=== PATIENT | female | born 1990 | race Caucasian/White ===

== ENCOUNTER 2024-12-02 13:09 | Emergency (ER) | payer OTHER, SELFPAY ==
[2024-12-02 13:10] VITALS: BMI 28.0
[2024-12-02 13:19] VITALS: BP 116/78; PULSE 90; RESP 20; TEMP 36.4; O2SAT 99
--- NOTE | 2024-12-02 13:24 | XR_ITS ---
Examination: Complete OB ultrasound, less than 14 weeks, transabdominal Date and time of exam: December 02, 2024 1416 hours INDICATIONS: Pelvic cramping beginning one week ago with vaginal bleeding beginning one day ago Technique: Obstetrical ultrasound images less than 14 weeks performed via transabdominal imaging Findings: A normal shaped single intrauterine gestation is present in the uterus. Uterus 11.5 x 7.9 x 7.9 cm pole 0.9 cm corresponds to 7 week 0 day gestational age Cardiac motion 166 BPM Ultrasonographic survey of visible and placental structures unremarkable. Amniotic fluid volume appears appropriate for this estimated gestational age. Right ovary 15.3 x 4.3 x 15.2 cm arterial flow, right adnexal mass 14.2 x 10.9 x 13.7 cm Left ovary 6.9 x 5.2 x 6.8 cm arterial flow 4.2 x 4.5 cm cyst IMPRESSION: Viable intrauterine gestation 7 weeks 0 days Recommend MRI pelvis without contrast follow-up at 20 weeks date to assess the right adnexal solid tumor mass.
--- NOTE | 2024-12-02 13:24 | EDNOTE_ITS ---
<Statement entered by Sarah Soto MD - 12/02/24 17:41> As co-signing physician, I was present and available for consult prn. I concur with the plan and care as documented by the midlevel provider. ED OB Contraction Preg RMI/HPI General Chief complaint: Abdominal Pain Stated complaint: + PREG, CRAMPING, FEVER AND VOMITING Time Seen by Provider: 12/02/24 13:19 Arrival date/time: 12/02/24 13:09 RME / HPI RME / HPI Narrative: 34-year-old female patient with no significant medical history, came in for evaluation regarding vaginal spotting. Patient tested positive for few days ago, and last night was noted to have vaginal spotting with pelvic discomfort. She been having vomiting also. Denies any abdominal pain. Denies any fever denies any dysuria denies any other complaints. Obese seen any MAC DEVELOPER for checkup.. Patient is 1 para 0. Related Data Previous Rx's ?Medication ?Instructions ?Recorded cyclobenzaprine 5 mg tablet 5 mg PO TID PRN muscle spa sm #14 09/27/20 tabs naproxen 500 mg tablet 500 mg PO BID PRN pain #30 t abs 09/27/20 ondansetron 4 mg disintegrating 4 mg PO Q8H PRN nausea and 09/29/20 tablet vomiting #14 tabs ondansetron 8 mg disintegrating 8 mg PO Q8H PRN nausea and 02/01/22 tablet vomiting #30 tabs hydrocodone 5 mg-acetaminophen 325 1 tab PO Q8H PRN pa in #7 tabs 05/07/24 mg tablet ibuprofen 800 mg tablet (IBU) 800 mg PO Q8H #20 tabs 0 05/07/24 Allergies Allergy/AdvReac Type Severity Reaction Status Date / Time No Known Allergies Allergy Verified 12/02/24 13:11 Review of Systems Review of Systems Narrative Review of Systems: Review of system reviewed and within normal limits except mentioned in HPI ED Exam Narrative Physical exam: VITAL SIGNS: Reviewed. GENERAL APPEARANCE: Alert and interactive, follows commands, no acute distress, HEAD AND FACE: Non-traumatic. ENT: PERRL, pink conjunctivitis, eyelid no trauma, Mucous membrane moist. NECK: Supple, nontender, no nuchal rigidity. CHEST: No tenderness, no crepitus, no paradoxical movement, no retractions. LUNGS: Clear, well ventilated, symmetric, no rales, no wheezing, no ronchi, no stridor, good breath sounds bilaterally. HEART: Regular rate, regular rhythm, no murmur, no gallops. ABDOMEN: Soft, positive bowel sounds, nondistended, no guarding, nontender, no rebound, no masses, RECTAL: Deferred. GENITAL: Deferred. NEUROLOGICAL: Gross motor function intact sensory function intact, Appropriate for age. MUSCULOSKELETAL: low back nontender, full range of motion. EXTREMITIES: Nontender, full range of motion. SKIN: Color pink, dry, no rash, no lacerations, no abrasions, no contusions. LYMPHATICS: Deferred. Course Quality Measures none Orders Category Date Time Status US OB <= 14 weeks fetus Stat Exams 12/02/24 13:24 Completed ABO/RH Type Stat Lab 12/02/24 13:40 Received Basic Metabolic Panel Stat Lab 12/02/24 13:40 Completed Beta HCG,Quantitative Stat Lab 12/02/24 13:40 Completed CBC Stat Lab 12/02/24 13:40 Completed Urinalysis Stat Lab 12/02/24 13:34 Completed Vital Signs Vital signs: Vital Signs Temperature 97.6 F 12/02/24 13:19 Pulse Rate 90 12/02/24 13:19 Respiratory Rate 20 12/02/24 13:19 Blood Pressure 116/78 12/02/24 13:19 Pulse Oximetry (%) 99 12/02/24 13:19 Oxygen Delivery Method Room Air 12/02/24 13:19 Vaginal Bleeding MDM Narrative MDM Narrative: 34-year-old female patient with no significant medical history, came in for evaluation regarding vaginal spotting. Patient tested positive for few days ago, and last night was noted to have vaginal spotting with pelvic discomfort. She been having vomiting also. Denies any abdominal pain. Denies any fever denies any dysuria denies any other complaints. Obese seen any MAC DEVELOPER for checkup.. Patient is 1 para 0. Laboratory workup came back unremarkable no UTI. However ultrasound of showed single live intrauterine gestation about 7 weeks gestation, with incidental finding of right adnexal mass. Patient was given a copy of the ultrasound. Patient was advised to closely follow-up with MAC DEVELOPER. Need to monitor the right adnexal mass. Patient was given ultrasound results. Patient appears nontoxic and hemodynamically stable. Patient discharged home and instructed to follow-up with primary care provider in 24 to 48 hours. Instructed to return to the emergency department immediately if worsening of symptoms Patient data External records reviewed:: None Clinical information provided by:: patient Social determinants that could affect healthcare access:: none Patient has the following chronic illnesses:: None How is presenting disease/condition affected by chronic disease/condition?: no chronic disease Evaluation data The following diagnostics were reviewed and interpreted by me:: lab results and radiology exam(s) Lab and/or radiology exams considered but not ordered:: None Interpretation Summary: See results in [facility] Medications / Prescriptions Medications or Prescriptions considered but not ordered:: None Medication administrations:: None Consultations Consultation(s) initiated? (list below): No Diagnosis Vaginal Bleeding Differential Diagnosis: threatened and vaginal bleedin g Most likely diagnosis given after review of the tests above:: Vaginal bleeding in early , right adnexal mass Admission Indicated Admission indicated?: not indicated Admission Request Was there a request for admission?: No Disposition Plan Disposition Plan: Discharge Discharge Attestation Discharge Attestation: The patient and all family members were given an opportunity to ask questions and understood the discharge instructions. Discharge instructions specifically effects, indications for sooner follow up or return to the emergency department, and the expected course of current diagnosis. Patient condition: Stable Discharge Plan Plan Patient Disposition: HOME (Self Care) Disposition Comment: Stable Prescriptions/Referrals Prescriptions/Med Rec: No Action cyclobenzaprine 5 mg tablet 5 mg PO TID PRN (Reason: muscle spasm) Qty: 14 0RF naproxen 500 mg tablet 500 mg PO BID PRN (Reason: pain) Qty: 30 0RF ondansetron 4 mg tablet,disintegrating 4 mg PO Q8H PRN (Reason: nausea and vomiting) Qty: 14 0RF ondansetron 8 mg tablet,disintegrating 8 mg PO Q8H PRN (Reason: nausea and vomiting) Qty: 30 0RF ibuprofen [IBU] 800 mg tablet 800 mg PO Q8H Qty: 20 0RF hydrocodone-acetaminophen 5-325 mg tablet 1 tab PO Q8H MDD 3 PRN (Reason: pain) Qty: 7 0RF Referrals: Shefali Kowalski MD [Primary Care Provider] - In 1 week Problem List Clinical Impression: Vaginal bleeding affecting early , Adnexal mass Patient/Caregiver Discharge Instructions Discharge Activity: activity as tolerated Education Materials: Bleeding During Early Additional Instructions: Thank you for the opportunity for serving you today. You are stable for discharged . You are advised to: Follow-up with your PCP in 1 to 2 days Return to ED for worsening of symptoms Increase oral fluids Follow-up with your MAC DEVELOPER especially regarding your right adnexal mass needs to be monitored probably MRI at 20 weeks gestation per recommendation Pelvic rest no sex for 1 week until cleared by MAC DEVELOPER Print Language: Vietnamese Stand Alone Forms: [facility] Award Info., Patient Portal Info Letter PA/ACQUISITION ANALYST Supervising Physician PA/ACQUISITION ANALYST Supervising Physician: Md Brittany
[2024-12-02 13:45] LABS: Collection Type, Urine Clean Catch
[2024-12-02 14:02] LABS: Bacteria,Urine 3+; Bilirubin,Urine Negative (Negative); Blood,Urine Negative (Negative); Clarity,Urine Clear (Clear/Hazy); Color,Urine Yellow (Lt Yel-Yel); Glucose, Urine Negative (Negative); Ketones,Urine Negative (Negative); Leukocyte Esterase,Urine Negative (Negative); Nitrite,Urine Negative (Negative); Protein,Urine Trace (Neg - Trace); RBC,Urine 5 /hpf (0-3); Specific Gravity,Urine 1.029 (1.001-1.035); Squamous Epithelial Cell,Urine 3 /hpf (0-5); Urobilinogen,Urine Negative mg/dL (0.0-1.0); WBC,Urine 1 /hpf (0-5)
[2024-12-02 14:07] LABS: Basophils % (Auto) 1 % (0-2.5); Eosinophils # (Auto) 0.5 Thou/mm3 (0.0-0.5); Eosinophils % (Auto) 6 % (0-10); Hemoglobin 12.9 g/dL (12.0-16.0); Immature Granulocytes % (Auto) 0 % (0-0); Immature Granulocytes Auto 0.03 Thou/mm3 (0.00-0.00); Lymphocytes # (Auto) 2.4 Thou/mm3 (1.0-4.8); Lymphocytes % (Auto) 29 % (10-50); Mean Corpuscular HGB Conc 34.9 g/dl (31.0-37.0); Mean Corpuscular Volume 86 fL (80-100); Monocytes # (Auto) 0.7 Thou/mm3 (0.0-0.8); Monocytes % (Auto) 8 % (0-12); Neutrophils # (Auto) 4.6 Thou/mm3 (1.8-7.7); Neutrophils % (Auto) 56 % (37-80); Nucleated Red Blood Cell % 0 /100 WBC (0); Platelet Count 264 Thou/mm3 (140-440); RDW Standard Deviation 39.6 fL (36.4-46.3); White Blood Count 8.2 Thou/mm3 (3.6-11.0)
[2024-12-02 14:28] LABS: Anion Gap 7 (7-16); BUN/Creatinine Ratio 14 Ratio (12-20); Blood Urea Nitrogen 7 mg/dL (9-23); Calcium 9.2 mg/dL (8.3-10.6); Carbon Dioxide 25.4 mMol/L (20.0-31.0); Chloride 106 mMol/L (98-107); Creatinine (Component) 0.5 mg/dL (0.6-1.3); Estimated Creatinine Clearance 185.7 mL/min (>60); Glucose 101 mg/dL (74-106); Osmolality,Calculated 273 (275-295); Potassium 3.8 mMol/L (3.4-5.1); Sodium 138 mMol/L (136-145); eGFR > 60 See Note
[2024-12-02 15:26] LABS: Beta HCG,Quantitative 103318 mIU/mL (<5.0)
== END 2024-12-02 15:59 | disposition home or self-care (01) ==
PROVIDERS: Nurse Practitioner Family; Emergency Provider Emergency Medicine; PCP Family Medicine
DX: O20.9 Hemorrhage in early pregnancy, unspecified (principal); N83.8 Other noninflammatory disorders of ovary, fallopian tube and broad ligament; O34.81 Maternal care for other abnormalities of pelvic organs, first trimester; Z3A.01 Less than 8 weeks gestation of pregnancy
CPT/HCPCS: 36415; 76801; 80048; 81001; 84702; 85025; 86900; 86901; 99284

== ENCOUNTER 2025-01-25 15:26 | Emergency (ER) | payer OTHER, SELFPAY ==
[2025-01-25 15:27] VITALS: BMI 28.3
[2025-01-25 15:33] VITALS: BP 125/79; PULSE 88; RESP 18; TEMP 36.9; O2SAT 98
--- NOTE | 2025-01-25 15:48 | XR_ITS ---
Examination: Complete OB ultrasound greater than 14 weeks Date and time of exam: January 25, 2025 1634 hrs. Indications: Right pelvic pain today, history right adnexal mass Sonogram December 02, 2024 Findings: Viable intrauterine single fetus with single amniotic sac presentation variable Cardiac motion 145 BPM Placenta previa grade 1 Umbilical cord insertion seen Amniotic fluid index adequate Multiple uterine masses, the largest in the fundus 15.7 x 14.7 cm Right ovary 4.5 cm arterial flow Left ovary 5.2 cm arterial flow 36 mm cyst. Composite estimated gestational age based on BPD, head circumference, abdominal circumference, femur length is 16 weeks 4 days Estimated weight 164.9 g. Survey of intracranial anatomy, spinal anatomy, abdominal anatomy, four-chamber heart performed with no abnormalities identified. Impression: Viable intrauterine gestation variable presentation Multiple uterine masses, the largest in the fundus 15.7 x 15.1 x 14.7 cm.
--- NOTE | 2025-01-25 15:48 | PD.EDRME ---
Rapid Medical Screening Exam RME Arrival date/time: 01/25/25 15:26 84-year-old female presents to the Emergency Department today stating that she is approximately 16 weeks on initial ultrasound patient was found to have a mass patient is complaining of pain on the right side at this time Chief Complaint: Urogenital-Female Vital signs: Vital Signs Temperature 98.5 F 01/25/25 15:33 Pulse Rate 88 01/25/25 15:33 Respiratory Rate 18 01/25/25 15:33 Blood Pressure 125/79 01/25/25 15:33 Pulse Oximetry (%) 98 01/25/25 15:33
[2025-01-25 16:15] LABS: Basophils % (Auto) 0 % (0-2.5); Eosinophils # (Auto) 0.3 Thou/mm3 (0.0-0.5); Eosinophils % (Auto) 3 % (0-10); Hematocrit 37.3 % (36.0-46.0); Hemoglobin 13.2 g/dL (12.0-16.0); Immature Granulocytes % (Auto) 0 % (0-0); Immature Granulocytes Auto 0.03 Thou/mm3 (0.00-0.00); Lymphocytes # (Auto) 2.3 Thou/mm3 (1.0-4.8); Lymphocytes % (Auto) 25 % (10-50); Mean Corpuscular HGB Conc 35.4 g/dl (31.0-37.0); Mean Corpuscular Hemoglobin 30.3 pg (25.0-35.0); Mean Corpuscular Volume 86 fL (80-100); Monocytes # (Auto) 0.6 Thou/mm3 (0.0-0.8); Monocytes % (Auto) 7 % (0-12); Neutrophils % (Auto) 65 % (37-80); Nucleated Red Blood Cell % 0 /100 WBC (0); Platelet Count 283 Thou/mm3 (140-440); RDW Standard Deviation 39.4 fL (36.4-46.3); Red Blood Count 4.35 Miln/mm3 (4.00-5.20); White Blood Count 9.3 Thou/mm3 (3.6-11.0)
[2025-01-25 17:12] LABS: Alanine Aminotransferase 11 U/L (10-49); Albumin, Serum 3.8 gm/dL (3.5-5.0); Albumin/Globulin Ratio 1.4 (1.2-2.2); Alkaline Phosphatase 41 U/L (46-116); Anion Gap 7 (7-16); Aspartate Amino Transferase 12 U/L (0-34); BUN/Creatinine Ratio 15 Ratio (12-20); Beta HCG,Quantitative 20986 mIU/mL (<5.0); Bilirubin,Total 0.3 mg/dL (0.3-1.2); Blood Urea Nitrogen 9 mg/dL (9-23); Calcium 9.2 mg/dL (8.3-10.6); Calcium (Corrected) 9.4 mg/dL (8.5-10.1); Chloride 104 mMol/L (98-107); Creatinine (Component) 0.6 mg/dL (0.6-1.3); Estimated Creatinine Clearance 155.5 mL/min (>60); Globulin 2.8 gm/dL (2.3-3.5); Glucose 95 mg/dL (74-106); Osmolality,Calculated 268 (275-295); Potassium 3.9 mMol/L (3.4-5.1); Sodium 135 mMol/L (136-145); Total Protein 6.6 gm/dL (5.7-8.2); eGFR > 60 See Note
[2025-01-25 17:40] LABS: Collection Type, Urine Clean Catch
[2025-01-25 17:42] VITALS: BP 125/68; PULSE 78; RESP 18; TEMP 36.5; O2SAT 98
[2025-01-25 17:48] LABS: Bacteria,Urine 2+; Bilirubin,Urine Negative (Negative); Blood,Urine Negative (Negative); Color,Urine Lt-Yellow (Lt Yel-Yel); Glucose, Urine Negative (Negative); Ketones,Urine Negative (Negative); Leukocyte Esterase,Urine Negative (Negative); Nitrite,Urine Negative (Negative); PH,Urine 5.5 (5.0-7.0); Protein,Urine Negative (Neg - Trace); RBC,Urine 3 /hpf (0-3); Specific Gravity,Urine 1.019 (1.001-1.035); Squamous Epithelial Cell,Urine 2 /hpf (0-5); Urobilinogen,Urine Negative mg/dL (0.0-1.0); WBC,Urine 3 /hpf (0-5)
[2025-01-25 17:50] LABS: Clarity,Urine Hazy (Clear/Hazy)
--- NOTE | 2025-01-25 18:55 | PD.EDFMALE ---
ED Female Urogenital RME/HPI General Chief complaint: Urogenital-Female Stated complaint: 16 WEEKS OB; R ABD CRAMPING Time Seen by Provider: 01/25/25 18:22 Arrival date/time: 01/25/25 15:26 RME / HPI RME / HPI Narrative: 01/25/25 15:26 84-year-old female presents to the Emergency Department today stating that she is approximately 16 weeks on initial ultrasound patient was found to have a mass patient is complaining of pain on the right side at this time This section includes all my notes and documentations, including HPI, PE, and ED course. Wu Smith MD HPI: 34-year-old female here with about 24-hour history of pelvic pain. She is currently , about 16 weeks. No vaginal bleeding. No other complaints. ROS: All negative except as documented in HPI. Physical Exam: General: Alert and oriented. No acute distress when remaining still. Eyes: Conjunctivae and lids clear. ENT: No nasal congestion. Neck: Supple. Heart: RRR. Lungs: No respiratory distress. Good air movement. No rhonchi, wheezing, rales. Abdomen: Soft and nontender. Normal bowel sounds. No distension. No rebound or guarding. Back: No CVA tenderness. Skin: Warm and dry. Neuro: Alert and oriented X 3. I reviewed all diagnostic test results. My review of the OB ultrasound report is GA 16 4/7 week IUP. Blood tests and urine tests remarkable for bacteriuria. At this point, diagnoses include threatened and UTI. Recommended treatment for UTI and expectant management. Based on my best medical judgment, made decision no further evaluation or treatment indicated at this time. Patient understands and agrees to the discharge instructions customized and printed, see below. Discharge Instructions from Dr. Smith: 1.? ? ? After evaluation, your baby is alive and doing well. 2.? ? ? Today, your GA is 16 4/7 weeks. 3.? ? ? With your symptoms, we caused this threatened miscarriage. Only time will determine whether you will have a successful or you will have a miscarriage.? If your symptoms stop, you can have a successful .? If your symptoms worsen, you may have a miscarriage.? If you have a miscarriage, unfortunately we won?t be able to save the baby because it?s too early.? Under 20 weeks, unfortunately we can?t help.?? But you have bacteria in your urine. Hopefully this is causing her symptoms. Take cefdinir to kill the bacteria in your urine. For good hydration, increase oral fluid and maintain clear urine. If dark or yellow, increase oral fluid. 4.? ? ? See your doctor on 01/28/2025 for recheck.? No sexual activity until cleared by a doctor taking care of you.?? 5.? ? ? Seek immediate medical care for severe bleeding (soaking more than 3 pads per hour), intolerable pain, or with any concerns.? Wu Smith MD Related Data Previous Rx's ?Medication ?Instructions ?Recorded cyclobenzaprine 5 mg tablet 5 mg PO TID PRN muscle spasm #14 09/27/20 tabs naproxen 500 mg tablet 500 mg PO BID PRN pain #30 tabs 09/27/20 ondansetron 4 mg disintegrating 4 mg PO Q8H PRN nausea and 09/29/20 tablet vomiting #14 tabs ondansetron 8 mg disintegrating 8 mg PO Q8H PRN nausea and 02/01/22 tablet vomiting #30 tabs hydrocodone 5 mg-acetaminophen 325 1 tab PO Q8H PRN pain #7 tabs 05/07/24 mg tablet ibuprofen 800 mg tablet (IBU) 800 mg PO Q8H #20 tabs 05/07/24 cefdinir 300 mg capsule 300 mg PO BID #14 caps 01/25/25 Allergies Allergy/AdvReac Type Severity Reaction Status Date / Time No Known Allergies Allergy Verified 01/25/25 15:29 Course Quality Measures none Orders Category Date Time Status US OB >= 14 weeks Fetus Stat Exams 01/25/25 15:48 Completed ABO/RH Type Stat Lab 01/25/25 15:56 Completed Beta HCG,Quantitative Stat Lab 01/25/25 15:56 Completed CBC Stat Lab 01/25/25 15:56 Completed Comprehensive Metabolic Panel Stat Lab 01/25/25 15:56 Completed UA [Urinalysis] Stat Lab 01/25/25 17:32 Completed Urine Culture Stat Lab 01/25/25 17:32 Received Vital Signs Vital signs: Vital Signs Temperature 98.5 F 01/25/25 15:33 Pulse Rate 88 01/25/25 15:33 Respiratory Rate 18 01/25/25 15:33 Blood Pressure 125/79 01/25/25 15:33 Pulse Oximetry (%) 98 01/25/25 15:33 Urogenital - Female Patient data External records reviewed:: [facility] previous records Clinical information provided by:: patient and family Social determinants that could affect healthcare access:: none Patient has the following chronic illnesses:: Currently How is presenting disease/condition affected by chronic disease/condition?: exacerbated by Evaluation data The following diagnostics were reviewed and interpreted by me:: lab results and radiology exam(s) Lab and/or radiology exams considered but not ordered:: None Interpretation Summary: IUP and UTI Medications / Prescriptions Medications or Prescriptions considered but not ordered:: None Medication administrations:: None Consultations Consultation(s) initiated? (list below): No Diagnosis Urogenital Female Differential Diagnosis: urinary tract infection, ovarian cyst and other (IUP, ectopic , threatened , complete , incomplete ) Most likely diagnosis given after review of the tests above:: IUP and UTI Admission Indicated Admission indicated?: not indicated Explain why admission is indicated or not indicated:: There was no indication for admission. Admission Request Was there a request for admission?: No Disposition Plan Disposition Plan: Discharge Discharge Attestation Discharge Attestation: The patient and all family members were given an opportunity to ask questions and understood the discharge instructions. Discharge instructions specifically effects, indications for sooner follow up or return to the emergency department, and the expected course of current diagnosis. Patient condition: Stable Discharge Plan Plan Patient Disposition: HOME (Self Care) Prescriptions/Referrals Prescriptions/Med Rec: New cefdinir 300 mg capsule 300 mg PO BID Qty: 14 0RF No Action cyclobenzaprine 5 mg tablet 5 mg PO TID PRN (Reason: muscle spasm) Qty: 14 0RF naproxen 500 mg tablet 500 mg PO BID PRN (Reason: pain) Qty: 30 0RF ondansetron 4 mg tablet,disintegrating 4 mg PO Q8H PRN (Reason: nausea and vomiting) Qty: 14 0RF ondansetron 8 mg tablet,disintegrating 8 mg PO Q8H PRN (Reason: nausea and vomiting) Qty: 30 0RF ibuprofen [IBU] 800 mg tablet 800 mg PO Q8H Qty: 20 0RF hydrocodone-acetaminophen 5-325 mg tablet 1 tab PO Q8H MDD 3 PRN (Reason: pain) Qty: 7 0RF Referrals: No Primary/Family,Physician [Primary Care Provider] - In 1 week Problem List Clinical Impression: Threatened miscarriage, Urinary tract infection Patient/Caregiver Discharge Instructions Discharge Activity: activity as tolerated Education Materials: ED Possible Miscarriage ..., ED CYSTITIS Female Adult Additional Instructions: Discharge Instructions from Dr. Smith: 1.? ? ? After evaluation, your baby is alive and doing well. 2.? ? ? Today, your GA is 16 4/7 weeks. 3.? ? ? With your symptoms, we caused this threatened miscarriage. Only time will determine whether you will have a successful or you will have a miscarriage.? If your symptoms stop, you can have a successful .? If your symptoms worsen, you may have a miscarriage.? If you have a miscarriage, unfortunately we won?t be able to save the baby because it?s too early.? Under 20 weeks, unfortunately we can?t help.?? But you have bacteria in your urine. Hopefully this is causing her symptoms. Take cefdinir to kill the bacteria in your urine. For good hydration, increase oral fluid and maintain clear urine. If dark or yellow, increase oral fluid. 4.? ? ? See your doctor on 01/28/2025 for recheck.? No sexual activity until cleared by a doctor taking care of you.?? 5.? ? ? Seek immediate medical care for severe bleeding (soaking more than 3 pads per hour), intolerable pain, or with any concerns.? Print Language: Cypriot Stand Alone Forms: [facility] Award Info., Patient Portal Info Letter
== END 2025-01-25 19:35 | disposition home or self-care (01) ==
PROVIDERS: Nurse Practitioner Primary Care; Emergency Provider Emergency Medicine
DX: O20.0 Threatened abortion (principal); O23.42 Unspecified infection of urinary tract in pregnancy, second trimester; N39.0 Urinary tract infection, site not specified; Z3A.16 16 weeks gestation of pregnancy
CPT/HCPCS: 36415; 76805; 80053; 81001; 84702; 85025; 86900; 86901; 87086; 99284

== ENCOUNTER 2025-02-09 14:24 | Emergency (ER) | payer OTHER, SELFPAY ==
--- NOTE | 2025-02-09 14:40 | XR_ITS ---
Examination: PA chest single view TECHNIQUE: Upright PA chest single view Exam date and time: February 09, 2025 1638 hours INDICATIONS: Shortness of breath chest pain beginning 2 days ago FINDINGS: Normal heart size. Lungs are clear The osseous structures are intact IMPRESSION: No active disease
--- NOTE | 2025-02-09 14:40 | XR_ITS ---
Examination: Complete OB ultrasound greater than 14 weeks Date and time of exam: February 09, 2025 1528 hours INDICATIONS: Pelvic cramping beginning 2 days ago, history uterine masses on ultrasound January 25, 2025 Findings: Viable intrauterine single fetus with single amniotic sac presentation variable Cardiac motion 133 BPM Placenta fundal left low in position but not previa grade 2 Uterine fundal mass 13.8 x 11.0 x 14.5 cm Umbilical cord insertion not well visualized Amniotic fluid adequate spine variable Right ovary obscured by bowel gas Left ovary 6.1 cm 4.7 cm cyst. Composite estimated gestational age based on BPD, head circumference, abdominal circumference, femur length is 18 weeks 3 days Estimated weight 236 g. Survey of intracranial anatomy, spinal anatomy, abdominal anatomy, four-chamber heart performed with no abnormalities identified. Impression: Viable intrauterine gestation variable presentation Estimated gestational age 18 weeks [address] follow-up to assess placental position.
--- NOTE | 2025-02-09 14:40 | EKG_ITS ---
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
[2025-02-09 14:41] VITALS: BP 121/80; PULSE 89; RESP 20; TEMP 36.8; O2SAT 94; BMI 28.8
--- NOTE | 2025-02-09 14:41 | PD.EDRME ---
Rapid Medical Screening Exam RME Arrival date/time: 02/09/25 14:24 24-year-old female presents to the emergency department today states approximate 19 weeks patient does have multiple masses patient is concerned that this may be causing her to have difficulty breathing patient does report difficulty breathing Chief Complaint: General Adult/Misc Complain
[2025-02-09 15:30] LABS: Basophils % (Auto) 0 % (0-2.5); Eosinophils # (Auto) 0.4 Thou/mm3 (0.0-0.5); Eosinophils % (Auto) 5 % (0-10); Hemoglobin 13.6 g/dL (12.0-16.0); Immature Granulocytes % (Auto) 0 % (0-0); Immature Granulocytes Auto 0.03 Thou/mm3 (0.00-0.00); Lymphocytes # (Auto) 2.3 Thou/mm3 (1.0-4.8); Lymphocytes % (Auto) 25 % (10-50); Mean Corpuscular HGB Conc 34.9 g/dl (31.0-37.0); Mean Corpuscular Hemoglobin 29.8 pg (25.0-35.0); Mean Corpuscular Volume 86 fL (80-100); Monocytes # (Auto) 0.6 Thou/mm3 (0.0-0.8); Monocytes % (Auto) 7 % (0-12); Neutrophils # (Auto) 5.7 Thou/mm3 (1.8-7.7); Neutrophils % (Auto) 63 % (37-80); Nucleated Red Blood Cell % 0 /100 WBC (0); Platelet Count 273 Thou/mm3 (140-440); RDW Standard Deviation 41.4 fL (36.4-46.3); Red Blood Count 4.56 Miln/mm3 (4.00-5.20)
[2025-02-09 15:46] LABS: Alanine Aminotransferase 11 U/L (10-49); Albumin/Globulin Ratio 1.4 (1.2-2.2); Alkaline Phosphatase 45 U/L (46-116); Anion Gap 8 (7-16); Aspartate Amino Transferase 14 U/L (0-34); BUN/Creatinine Ratio 11 Ratio (12-20); Bilirubin,Total 0.5 mg/dL (0.3-1.2); Blood Urea Nitrogen 8 mg/dL (9-23); Calcium 9.5 mg/dL (8.3-10.6); Calcium (Corrected) 9.5 mg/dL (8.5-10.1); Carbon Dioxide 22.7 mMol/L (20.0-31.0); Chloride 106 mMol/L (98-107); Creatinine (Component) 0.7 mg/dL (0.6-1.3); Estimated Creatinine Clearance 134.3 mL/min (>60); Globulin 2.9 gm/dL (2.3-3.5); Glucose 95 mg/dL (74-106); Osmolality,Calculated 272 (275-295); Potassium 3.8 mMol/L (3.4-5.1); Sodium 137 mMol/L (136-145); Total Protein 6.9 gm/dL (5.7-8.2); Troponin I < 0.020 ng/mL (0.0-0.045); eGFR > 60 See Note
[2025-02-09 15:52] LABS: Collection Type, Urine Clean Catch
[2025-02-09 16:01] LABS: Bilirubin,Urine Negative (Negative); Blood,Urine Negative (Negative); Clarity,Urine Clear (Clear/Hazy); Color,Urine Yellow (Lt Yel-Yel); Glucose, Urine Negative (Negative); Ketones,Urine Negative (Negative); Leukocyte Esterase,Urine Negative (Negative); Nitrite,Urine Negative (Negative); Protein,Urine Trace (Neg - Trace); RBC,Urine 5 /hpf (0-3); Specific Gravity,Urine 1.032 (1.001-1.035); Squamous Epithelial Cell,Urine 1 /hpf (0-5); Urobilinogen,Urine Negative mg/dL (0.0-1.0); WBC,Urine 1 /hpf (0-5)
[2025-02-09 16:16] LABS: Beta HCG,Quantitative 19280 mIU/mL (<5.0)
--- NOTE | 2025-02-09 20:28 | PD.EDADULT ---
ED General RME/HPI General Chief complaint: General Adult/Misc Complain Stated complaint: VAGINAL CRAMPING AT 18 WKS Time Seen by Provider: 02/09/25 19:04 Arrival date/time: 02/09/25 14:24 CC: Intermittent wheezing HPI patient is a G1, P0 at 18 weeks 3 days complaining of wheezing and intermittent shortness of breath currently they are all absent. The patient denies any shortness of breath at this time. Patient has been using her as needed albuterol inhaler for temporary relief but the wheezing then comes back on occasion. Patient is not in any acute distress with stable vital signs. RME / HPI RME / HPI narrative: 02/09/25 14:24 24-year-old female presents to the emergency department today states approximate 19 weeks patient does have multiple masses patient is concerned that this may be causing her to have difficulty breathing patient does report difficulty breathing Related Data Previous Rx's ?Medication ?Instructions ?Recorded cyclobenzaprine 5 mg tablet 5 mg PO TID PRN muscle spasm #14 09/27/20 tabs naproxen 500 mg tablet 500 mg PO BID PRN pain #30 tabs 09/27/20 ondansetron 4 mg disintegrating 4 mg PO Q8H PRN nausea and 09/29/20 tablet vomiting #14 tabs ondansetron 8 mg disintegrating 8 mg PO Q8H PRN nausea and 02/01/22 tablet vomiting #30 tabs hydrocodone 5 mg-acetaminophen 325 1 tab PO Q8H PRN pain #7 tabs 05/07/24 mg tablet ibuprofen 800 mg tablet (IBU) 800 mg PO Q8H #20 tabs 05/07/24 cefdinir 300 mg capsule 300 mg PO BID #14 caps 01/25/25 Allergies Allergy/AdvReac Type Severity Reaction Status Date / Time No Known Allergies Allergy Verified 01/25/25 15:29 Review of Systems Review of Systems Narrative Review of Systems: GEN: No fever, no chills, no weight loss EYES: No discharge, no visual changes, no pain HEENT: No ear pain, no congestion, no sore throat PULM: No shortness of breath, no cough, no congestion,+wheezing CV: No chest pain, no dyspnea on exertion, no palpitations GI: No nausea, no vomiting, no diarrhea, no pain, no constipation : No frequency, no urgency, no dysuria MUSC/SKEL: No joint pain, no back pain SKIN: No rash PSYCH: No hallucinations, no depression HEME/LYMPH: No easy bleeding or bruising tendencies NEURO: No weakness, no headache Past Medical History Past Medical History CARDIAC: Negative Congestive Heart Failure RESPIRATORY: Negative Chronic Obstructive Pulmonary Disease (COPD) GENITOURINARY: Negative Renal Disease ENDOCRINE: Negative Diabetes Mellitus Type 1 or Diabetes Mellitus Type 2 Social History SMOKING STATUS: Never smoker ED Exam Narrative Physical exam: [General: Not in any acute distress Head normocephalic HEENT: Within acceptable limits Neck is supple nontender Chest equal chest rise nontender to palpation Respiratory: Clear to auscultation no wheezes crackles or rubs CV: Rate rhythm is regular no murmurs rubs or clicks Abdomen is distended secondary to , nontender no masses positive bowel sounds all 4 quadrants Back: No CVA tenderness no spinous process tenderness from cervical spine thoracic and lumbar spine Skin: Intact no petechiae rash induration ulceration or crepitus Extremities: Moving all extremity against resistance cap refill less than 2 seconds neurosensory intact Neuro: Awake alert oriented x3 Glascow coma 15 no focal deficits] Course Quality Measures none Orders Category Date Time Status EKG (ED ONLY) *Do not use* NOW Care 02/09/25 14:40 Completed EKG (ED Only) Stat Exams 02/09/25 14:40 Draft US OB >= 14 weeks Fetus Stat Exams 02/09/25 14:40 Completed XR chest 1V Stat Exams 02/09/25 14:40 Completed ABO/RH Type Stat Lab 02/09/25 15:10 Completed Beta HCG,Quantitative Stat Lab 02/09/25 15:10 Completed CBC Stat Lab 02/09/25 15:10 Completed Comprehensive Metabolic Panel Stat Lab 02/09/25 15:10 Completed Troponin I Stat Lab 02/09/25 15:10 Completed UA [Urinalysis] Stat Lab 02/09/25 15:48 Completed Urine Culture Stat Lab 02/09/25 15:48 Received Vital Signs Vital signs: Vital Signs Temperature 98.2 F 02/09/25 14:41 Pulse Rate 89 02/09/25 14:41 Respiratory Rate 20 02/09/25 14:41 Blood Pressure 121/80 02/09/25 14:41 Pulse Oximetry (%) 94 L 02/09/25 14:41 Oxygen Delivery Method Room Air 02/09/25 14:41 Discharge Plan Plan Patient Disposition: HOME (Self Care) Patient condition on transfer: Stable Prescriptions/Referrals Prescriptions/Med Rec: No Action cyclobenzaprine 5 mg tablet 5 mg PO TID PRN (Reason: muscle spasm) Qty: 14 0RF naproxen 500 mg tablet 500 mg PO BID PRN (Reason: pain) Qty: 30 0RF ondansetron 4 mg tablet,disintegrating 4 mg PO Q8H PRN (Reason: nausea and vomiting) Qty: 14 0RF ondansetron 8 mg tablet,disintegrating 8 mg PO Q8H PRN (Reason: nausea and vomiting) Qty: 30 0RF cefdinir 300 mg capsule 300 mg PO BID Qty: 14 0RF ibuprofen [IBU] 800 mg tablet 800 mg PO Q8H Qty: 20 0RF hydrocodone-acetaminophen 5-325 mg tablet 1 tab PO Q8H MDD 3 PRN (Reason: pain) Qty: 7 0RF Referrals: Shefali Kowalski MD [Primary Care Provider] - In 1 week Problem List Clinical Impression: Wheezing, Patient/Caregiver Discharge Instructions Education Materials: Preg 2nd Trimester Print Language: Cypriot Stand Alone Forms: [employer] Info., Work/School Release, Patient Portal Info Letter PA/[employer] Supervising Physician PA/JAX Supervising Physician: Finesse Andrea ENP MDM Patient Acuity Low Acuity (complete MDM as needed) Clinical Information Provided by: patient Medical Records reviewed None Meds/Rx considered, not ordered None Labs Lab(s) Interpretation(s): CBC shows no acute leukocytosis anemia thrombocytopenia CMP shows no acute electrolyte imbalances no renal impairment transaminitis or T. bili elevation. Urine is negative for urinary tract infection ABO Rh is B+. ultrasound shows 18 weeks 3 days IUP with a heart rate of 133. Quantitative hCG is greater than 19,000. Diagnosis Differential Diagnosis ED Complaint MDM: Pneumonia asthma URI
== END 2025-02-09 20:45 | disposition home or self-care (01) ==
PROVIDERS: Nurse Practitioner Primary Care; Emergency Provider Emergency Medicine; PCP Family Medicine
DX: O99.512 Diseases of the respiratory system complicating pregnancy, second trimester (principal); R06.2 Wheezing; R07.9 Chest pain, unspecified; Z3A.19 19 weeks gestation of pregnancy
CPT/HCPCS: 36415; 71045; 76805; 80053; 81001; 84484; 84702; 85025; 86900; 86901; 87086; 93005; 99284

== ENCOUNTER 2025-02-15 22:03 | Emergency (ER) | payer OTHER, SELFPAY ==
[2025-02-15 22:04] VITALS: BP 136/89; PULSE 93; RESP 18; TEMP 36.8; O2SAT 95
[2025-02-15 22:18] VITALS: BMI 28.6
[2025-02-15 22:20] VITALS: PULSE 90; RESP 22; O2SAT 95
[2025-02-15 22:29] VITALS: BP 117/84; PULSE 98; RESP 20; O2SAT 93
--- NOTE | 2025-02-15 22:32 | PC.NURSE ---
apopears in no distress
--- NOTE | 2025-02-15 23:33 | EDNOTE_ITS ---
ED SOB =RME/HPI General Chief Complaint: Shortness of Breath/Dyspnea Stated Complaint: SOB Time Seen by Provider: 02/15/25 23:29 Arrival date/time: 02/15/25 22:03 Limitations: no limitations RME / HPI RME / HPI Narrative: DR. LOPEZ MAIN ED EVALUATION: 34 y/o 19 week female with Hx of Asthma BIBA presents to ED c/o sudden shortness of breath and coughing up phlegm while sitting x approximately 10 hours ago. Patient normally uses inhalers PRN about 2-4 times per day, but ran out 2 days ago and expresses having difficulty in obtaining refills. Last treatment was about 6 months ago. Admits asthma has been worse since she has been . LMP was September 2024. Baby is due 07/12/2025. States this episode is the worst asthma attack she has had. Denies any abdominal cramping or vaginal bleeding. Patient was seen last week for shortness of breath. Was told CXR and EKG were unremarkable. Patient denies vaginal bleeding, abdominal cramping, or any other associated symptoms or aggravating factors. No modifying factors, no radiation, no migration. No pain reported overall. PMHx: Asthma Medications: Reviewed Social history: None reported PCP: Shefali Kowalski MD MD Complaint: shortness of breath, cough and asthma attack Context: other () Known history of: asthma Associated symptoms: cough and sputum production Related Data Previous Rx's ?Medication ?Instructions ?Recorded cyclobenzaprine 5 mg tablet 5 mg PO TID PRN muscle spa sm #14 09/27/20 tabs naproxen 500 mg tablet 500 mg PO BID PRN pain #30 t abs 09/27/20 ondansetron 4 mg disintegrating 4 mg PO Q8H PRN nausea and 09/29/20 tablet vomiting #14 tabs ondansetron 8 mg disintegrating 8 mg PO Q8H PRN nausea and 02/01/22 tablet vomiting #30 tabs hydrocodone 5 mg-acetaminophen 325 1 tab PO Q8H PRN pa in #7 tabs 05/07/24 mg tablet ibuprofen 800 mg tablet (IBU) 800 mg PO Q8H #20 tabs 0 05/07/24 cefdinir 300 mg capsule 300 mg PO BID #14 caps 01/25 albuterol sulfate 90 mcg/actuation 2 puff inhalation Q 6H PRN wheezing 02/16/25 aerosol inhaler 5 days #8.5 grams prednisone 50 mg tablet 50 mg PO QDAY 5 days #5 tabs 02/16/25 Allergies Allergy/AdvReac Type Severity Reaction Status Date / Time No Known Allergies Allergy Verified 02/15/25 22:30 Review of Systems Review of Systems Systems Reviewed: All systems reviewed, normal except as documented Narrative Review of Systems: PULM: + shortness of breath, + cough with phlegm GI: No Abdominal cramping : No vaginal bleeding Past Medical History Past Medical History CARDIAC: Negative Congestive Heart Failure RESPIRATORY: Positive Asthma; Negative Chronic Obstructive Pulmonary Disease (COPD) GENITOURINARY: Negative Renal Disease ENDOCRINE: Negative Diabetes Mellitus Type 1 or Diabetes Mellitus Type 2 Social History SMOKING STATUS: Never smoker ED Exam Narrative Physical exam: heart tones 147. General Limitations: Present no limitations General appearance: Present alert and in no apparent distress Head Head exam: Present atraumatic Eye Eye exam: Present normal appearance and EOMI ENT ENT exam: Present normal exam, normal oropharynx and mucous membranes moist Neck Neck exam: Present normal inspection, full ROM and trachea midline Chest Chest inspection: Present normal inspection and symmetric chest wall rise Respiratory Respiratory exam: Present normal lung sounds bilaterally; Absent respiratory distress, wheezes, stridor or accessory muscle use Cardiovascular Cardiovascular exam: Present regular rate, normal rhythm and normal heart sounds Abdominal Exam Abdominal exam: Present soft, normal bowel sounds and other (Patient gravid, pelvis above the umbilicus.) Extremities Exam Extremities exam: Present normal inspection and full ROM Back Exam Back exam: Present normal inspection and full ROM Neurological Exam Neurological exam: Present alert, oriented X3 and other (Over the long extremities. Following all commands.) Psychiatric Psychiatric exam: Present normal affect and normal mood Skin Skin exam: Present warm, dry, intact and normal color; Absent rash or cyanosis Course Course Course Narrative: Patient was treated with 1 dose of Medrol and feels slightly better. Quality Measures none Orders Category Date Time Status Bedside COVID-19 Antigen Test NOW Care 02/15/25 23:35 Completed heart tone auscultation Q4H Care 02/15/25 23:35 Completed Albuterol* Inhaler [Proventil Inhaler] Med 02/16/25 05:51 Discontinued 2 puff INH X1 ONE Albuterol/Ipratr Rt Corry [Duoneb Rt Corry] Med 02/16/25 04:50 Discontinued 3 ml INH X1 ONE Magnesium Sulfate 1 gm Ivpb [Magnesium Sulfate Ivpb] Med 02/16/25 04:57 Discontinued 1 gm in 100 ml IV X1 MethylPREDNISolone.* [SoluMEDROL Inj] Med 02/15/25 23:34 Discontinued 125 mg IVP X1 ONE Sodium Chloride 0.9% 1000 ml [Ns] 1,000 ml Med 02/15/25 23:34 Discontinued IV 999 mls/hr Reevaluation(s) Reevaluation #1: Patient reports feeling better following treatment. No abdominal pain, hematuria, or cramping. Time: 05:47 Vital Signs Vital signs: Vital Signs Temperature 98.2 F 02/15/25 22:04 Pulse Rate 93 02/15/25 22:04 Respiratory Rate 18 02/15/25 22:04 Blood Pressure 136/89 H 02/15/25 22:04 Pulse Oximetry (%) 95 02/15/25 22:04 Oxygen Delivery Method Nasal Cannula 02/15/25 22:04 Oxygen Flow Rate 6 02/15/25 22:04 Shortness of Breath / Dyspnea MDM Narrative MDM Narrative:: Scribe Attestation: Anaid Martínez, carlos scribing for and in the presence o carrie Chew. Provider Notation: Although this document has been carefully reviewed, there may still be some phonetic and other typographical errors. These errors are purely grammatical due to imperfections in the software program and should not be construed in any way to compromise the substance of the patient's medical care during this visit. 34-year-old female with history of 19 weeks 3 days gestation, history of asthma, no previous intubations in the past was seen on February 09 for wheezing coming into the emergency department secondary to running out of her albuterol inhaler and having an asthma exacerbation. Differential diagnosis includes asthma ovation, viral syndrome, bronchitis, doubt pulmonary embolism although the patient is however she is not complaining of any pleuritic component, and not having chest pain or new shortness of breath. The patient states that she had some wheezing earlier today and she could not use an inhaler so she came to the emergency department. She is not having significant shortness of breath and or chest pain at this time no's lower extremity swelling. Patient states this is similar to her previous extubation but slightly increased. While emergency department the patient was given a treatment and her O2 saturation after the treatment is 93% on room air. Plan is to treat her with Solu-Medrol, 1 L of fluid, check heart tones, and reassess. The patient had a chest x-ray that was done on February 09 which showed no infiltrate. Will check COVID and influenza. Patient data External records reviewed:: [facility] previous records (Prior ED records reviewed from 02/09/25. Patient was seen for .) Clinical information provided by:: patient Social determinants that could affect healthcare access:: none Patient has the following chronic illnesses:: Asthma How is presenting disease/condition affected by chronic disease/condition?: exacerbated by Evaluation data The following diagnostics were reviewed and interpreted by me:: other (specify) (N/A) Lab and/or radiology exams considered but not ordered:: None Interpretation Summary: N/A Medications / Prescriptions Medications or Prescriptions considered but not ordered:: None Medication administrations:: Medication Administration History Discontinued Medications Albuterol (Albuterol Inh 8 Gm) 2 puff INH X1 ONE Stop: 02/16/25 05:52 Last Admin: 02/16/25 06:12 Dose: 2 puff Documented By: WILMA Albuterol/Ipratropium (Albuterol/Ipratropium (Duoneb) Rt Corry 3 Ml Nebu) 3 ml INH X1 ONE Stop: 02/16/25 04:51 Last Admin: 02/16/25 05:58 Dose: 3 ml Documented By: JUD Sodium Chloride (Ns) 1,000 mls @ 999 mls/hr IV .Q1H1M ONE Stop: 02/16/25 00:34 Last Infusion: 02/16/25 00:49 Dose: Infused Documented By: Admin: 02/15/25 23:41 Dose: 999 mls/hr Documented By: LALO Magnesium Sulfate/Dextrose (Magnesium Sulfate Ivpb) 1 gm in 100 mls @ 100 mls/hr IV X1 ONE Stop: 02/16/25 05:56 Last Infusion: 02/16/25 06:30 Dose: Infused Documented By: Admin: 02/16/25 05:18 Dose: 100 mls/hr Documented By: JUD Methylprednisolone Sodium Succinate (Methylprednisolone Sod Succ 62.5 Mg/Ml 2ml Vial) 125 mg IVP X1 ONE Stop: 02/15/25 23:35 Last Admin: 02/15/25 23:41 Dose: 125 mg Documented By: EF See above if any Consultations Consultation(s) initiated? (list below): No Diagnosis Shortness of Breath Differential Diagnosis: asthma with exacerbation and other (PNA, Bronchitis) Most likely diagnosis given after review of the tests above:: Wheezing, Asthma exacerbation Admission Indicated Admission indicated?: not indicated Explain why admission is indicated or not indicated:: No significant findings indicative of admission at this time. Admission Request Was there a request for admission?: No Disposition Plan Disposition Plan: Discharge Discharge Attestation Discharge Attestation: The patient and all family members were given an opportunity to ask questions and understood the discharge instructions. Discharge instructions specifically effects, indications for sooner follow up or return to the emergency department, and the expected course of current diagnosis. Patient condition: Stable Discharge Plan Plan Patient Disposition: HOME (Self Care) Patient condition on transfer: Stable Prescriptions/Referrals Prescriptions/Med Rec: New albuterol sulfate 90 mcg/actuation HFA aerosol inhaler 2 puff inhalation Q6H PRN (Reason: wheezing) 5 Days Qty: 8.5 6RF Rx Instructions: administer with spacer prednisone 50 mg tablet 50 mg PO QDAY 5 Days Qty: 5 0RF No Action cyclobenzaprine 5 mg tablet 5 mg PO TID PRN (Reason: muscle spasm) Qty: 14 0RF naproxen 500 mg tablet 500 mg PO BID PRN (Reason: pain) Qty: 30 0RF ondansetron 4 mg tablet,disintegrating 4 mg PO Q8H PRN (Reason: nausea and vomiting) Qty: 14 0RF ondansetron 8 mg tablet,disintegrating 8 mg PO Q8H PRN (Reason: nausea and vomiting) Qty: 30 0RF cefdinir 300 mg capsule 300 mg PO BID Qty: 14 0RF ibuprofen [IBU] 800 mg tablet 800 mg PO Q8H Qty: 20 0RF hydrocodone-acetaminophen 5-325 mg tablet 1 tab PO Q8H MDD 3 PRN (Reason: pain) Qty: 7 0RF Referrals: Shefali Kowalski MD [Primary Care Provider] - In 1 week Problem List Clinical Impression: Wheezing, Asthma with exacerbation Patient/Caregiver Discharge Instructions Education Materials: Asthma and , Asthma Additional Instructions: Even though you have been discharged from the Emergency Department, there are several things that you should do to ensure that you receive proper care: Please call 911 immediately if you are having worsening shortness of breath, you feel like your asthma is worse, you have any abdominal cramping, any vaginal bleeding, or you are feel like you are in labor. 1. DO READ your discharge instructions as these contain important information concerning your medical care. 2. If medication has been prescribed for your condition, fill the prescription as soon as possible and follow the directions on the medication. 3. RETURN AT ONCE TO THE EMERGENCY DEPARTMENT if you have any problems or concerns. These include but are not limited to fever, worsening pain(belly, chest, head, etc?), worsening shortness of breath, uncontrollable bleeding, inability to tolerate food and water, or any condition that makes you question your well-being. Also, if your symptoms do not improve in the next 12-24 hours, return to the ER or seek medical care immediately. 4. Be sure to follow up with your regular physician or specialist as instructed at discharge as this is the best way to ensure that you receive the very best of care. If you do not have a primary care physician, please contact a physician group and make an appointment. 5. Please visit [employer] for coupons regarding your prescriptions. It is a free service for you to use and can help reduce the cost of your medication. We would like to thank you for coming today and our hope is that we served you and your family well during your stay. Print Language: Estonian Stand Alone Forms: [employer] Info., Patient Portal Info Letter
[2025-02-15] MEDS: MethylPREDNISolone SOD SUCC 62.5 MG/ML 2ML VIAL 125 MG IVP (23:41)
[2025-02-15] MEDS: SODIUM CHLORIDE 0.9% 1000 ML 1,000 ML 999 ML IV (23:41)
[2025-02-15 23:55] VITALS: BP 122/65; PULSE 84; RESP 18; TEMP 36.7; O2SAT 98
[2025-02-16 03:00] VITALS: BP 92/57; PULSE 64; RESP 15; O2SAT 91
[2025-02-16 04:00] VITALS: BP 96/55; PULSE 69; RESP 12; O2SAT 91
--- NOTE | 2025-02-16 04:53 | PC.NURSE ---
pt has been sleeping. No resp distress noted.
[2025-02-16] MEDS: Magnesium Sulfate 1 gm Ivpb 1 GM/100 ML BAG IV (05:18)
[2025-02-16] MEDS: ALBUTEROL/IPRATROPIUM (Duoneb) RT SOL 3 ML NEBU INH (05:58)
[2025-02-16] MEDS: ALBUTEROL INH 8 GM 2 PUFF INH (06:12)
[2025-02-16 06:15] VITALS: PULSE 103; RESP 20; O2SAT 94
[2025-02-16 07:40] VITALS: PULSE 87; RESP 19; O2SAT 95
== END 2025-02-16 07:42 | disposition home or self-care (01) ==
PROVIDERS: Emergency Provider Emergency Medicine; PCP Family Medicine
DX: O99.512 Diseases of the respiratory system complicating pregnancy, second trimester (principal); J45.901 Unspecified asthma with (acute) exacerbation; Z3A.19 19 weeks gestation of pregnancy
CPT/HCPCS: 87400; 87502; 87811; 94640; 96361; 96365; 96375; 99284; A9270; J2919; J3475; J7030

== ENCOUNTER 2025-02-23 03:18 | Emergency (ER) | payer OTHER, SELFPAY ==
[2025-02-23 03:19] VITALS: BMI 28.8
[2025-02-23 03:25] VITALS: BP 122/69; PULSE 109; RESP 26; TEMP 36.7; O2SAT 90
--- NOTE | 2025-02-23 03:31 | XR_ITS ---
Examination: AP chest single view TECHNIQUE: AP portable upright chest single view. Examination time: February 23, 2025 0403 hours INDICATIONS: Shortness of breath several hours, diagnosis asthma FINDINGS: Normal heart size Lungs are clear. The osseous structures are intact IMPRESSION: No active disease
--- NOTE | 2025-02-23 03:31 | PD.EDRME ---
Rapid Medical Screening Exam [facility] Arrival date/time: 02/23/25 03:18 34F with history of asthma presents to ED with several hours of SOB. Patient denies fevers/chills and congestion. Patient is currently . Chief Complaint: Asthma Vital signs: Vital Signs Temperature 98.1 F 02/23/25 03:25 Pulse Rate 109 H 02/23/25 03:25 Respiratory Rate 26 H 02/23/25 03:25 Blood Pressure 122/69 02/23/25 03:25 Pulse Oximetry (%) 90 L 02/23/25 03:25 Oxygen Delivery Method Room Air 02/23/25 03:25
[2025-02-23 03:41] VITALS: PULSE 101; RESP 24; O2SAT 96
[2025-02-23] MEDS: SODIUM CHLORIDE RT SOL 0.9% 3 ML NEBU INH (03:41)
[2025-02-23] MEDS: LEVALBUTEROL RT 1.25 MG/0.5 ML NEBU 5 MG INH (03:41)
[2025-02-23] MEDS: IPRATROPIUM RT 0.5 MG/ 2.5 ML NEBU 1 MG INH (03:42)
[2025-02-23] MEDS: MethylPREDNISolone SOD SUCC 62.5 MG/ML 2ML VIAL 125 MG IVP (03:56)
--- NOTE | 2025-02-23 04:16 | EKG_ITS ---
[facility] Test Date: 2025-02-23 Pat Name: SIENNA ORELLANA Department: Room: - Gender: Female School Speech Language Pathologist: : 1990 Requested By: Arturo Daigle Order Number: [id number] Reading MD: Arturo Daigle Measurements Intervals [place] Rate: 80 P: 65 ND: 138 QRS: 33 QRSD: 96 T: 40 QT: 377 QTc: 437 Interpretive Statements SINUS RHYTHM Compared to ECG 02/09/2025 14:43:29 No significant changes /store/S0/[id number]
--- NOTE | 2025-02-23 04:17 | EDNOTE_ITS ---
ED General RME/HPI General Chief complaint: Asthma Stated complaint: DIFFICULTY BREATHING, ASTHMA Time Seen by Provider: 02/23/25 03:52 Arrival date/time: 02/23/25 03:18 RME / HPI RME / HPI narrative: This patient is a 34-year-old female with past medical history of asthma since childhood on inhalers, 20 weeks presented to the ED on 02/23/2025 with worsening shortness of breath started an hour ago associated with cough with mil d phlegm. She also reported to have mild nausea without vomiting. Patient stated that she came a week ago with a similar presentation of worsening shortness of breath and received breathing treatments. Denied any chest pain, lightheadedness or dizziness, abdominal discomfort, dysuria, fever chills or any other complaints. Patient is 1 para 0 0. Before , patient used to have few episodes of asthma exacerbation and used to use her inhaler once every week. Vitals showed blood pressure 122/69, heart rate 100, respiratory rate 26 breaths/min, afebrile and saturating well on room air. Labs were unremarkable. Hgb was 12 WBC 9.6 PLT 221. chemistry panel showed sodium 139, potassium 3.8. BUN 9 and creatinine 0.6. GFR 60. Blood glucose 91. Magnesium 1.7. Liver enzymes unremarkable. CXR showed no active disease. EKG showed sinus rhythm with no ST-T changes.Patient most likely has acute asthma exacerbation. She was given Xopenex, ipratropium magnesium 2 g and Solu- Medrol x 1. Recommended to take Prednisone 40 mg once a day for total 5 days Continue using Albuterol inhaler as needed for SOB or wheezing Follow up with your PCP as outpatient In case of worsening Signs/symptoms, call 911 or come back to the ED PMH: As above PSH: Not significant SH: Denies smoking or drinking alcohol. No history of illicit drug use Allergies: NKDA [employer] history: 1 para 0 0 Home medications: vitamins complaint: Worsening shortness of breath with cough Onset (ago): hour(s) (1 ) Associated symptoms: cough and shortness of breath Related Data Previous Rx's ?Medication ?Instructions ?Recorded cyclobenzaprine 5 mg tablet 5 mg PO TID PRN muscle spa #14 09/27/20 tabs naproxen 500 mg tablet 500 mg PO BID PRN pain #30 t abs 09/27/20 ondansetron 4 mg disintegrating 4 mg PO Q8H PRN nausea and 09/29/20 tablet vomiting #14 tabs ondansetron 8 mg disintegrating 8 mg PO Q8H PRN nausea and 02/01/22 tablet vomiting #30 tabs hydrocodone 5 mg-acetaminophen 325 1 tab PO Q8H PRN pa in #7 tabs 05/07/24 mg tablet ibuprofen 800 mg tablet (IBU) 800 mg PO Q8H #20 tabs 0 05/07/24 cefdinir 300 mg capsule 300 mg PO BID #14 caps 01/25 albuterol sulfate 90 mcg/actuation 2 puff inhalation Q 6H PRN wheezing 02/16/25 aerosol inhaler 5 days #8.5 grams prednisone 20 mg tablet 40 mg (2 x 20 mg) PO QDAY 5 days 02/23/25 #10 tabs Allergies Allergy/AdvReac Type Severity Reaction Status Date / Time No Known Allergies Allergy Verified 02/15/25 22:30 Review of Systems Review of Systems Systems Reviewed: All systems reviewed, normal except as documented Past Medical History Past Medical History CARDIAC: Negative Congestive Heart Failure RESPIRATORY: Positive Asthma; Negative Chronic Obstructive Pulmonary Disease (COPD) GENITOURINARY: Negative Renal Disease ENDOCRINE: Negative Diabetes Mellitus Type 1 or Diabetes Mellitus Type 2 Social History SMOKING STATUS: Never smoker ED Exam Narrative Physical exam: GENERAL APPEARANCE: AxOx4, female in mild distress due to shortness of breath. HEENT: NC, AT. MMM. EOMI, clear conjunctiva, oropharynx clear. NECK: Supple without lymphadenopathy. No stiffness or restricted ROM. HEART: Sinus tachycardia with regular rhythm, normal S1/S2, no m/r/g LUNGS: CTAB, moving air well. Moderate wheezing heard on auscultation. ABDOMEN: Soft, nontender, nondistended with good bowel sounds heard. 20 weeks BACK: No CVAT, no obvious deformity. EXTREMITIES: Without cyanosis, clubbing or edema. NEUROLOGICAL: Grossly nonfocal. Alert and oriented, moving all 4 extremities. CN not formally tested but appear grossly intact. Observed to ambulate with normal gait. Skin: Warm and dry without any rash. Psych: Appropriate mood and affect Course Course Course Narrative: Patient most likely has acute asthma exacerbation. She was given Xopenex, ipratropium magnesium 2 g and Solu-Medrol x 1. Labs were unremarkable.CXR showed no active disease. Recommended to take Prednisone 40 mg once a day for total 5 days Continue using Albuterol inhaler as needed for SOB or wheezing Follow up with your PCP as outpatient In case of worsening Signs/symptoms, call 911 or come back to the ED Quality Measures none Orders Category Date Time Status EKG (ED ONLY) *Do not use* NOW Care 02/23/25 04:16 Completed EKG (ED Only) Stat Exams 02/23/25 04:16 Draft XR chest 1V portable Stat Exams 02/23/25 03:31 Taken CBC Stat Lab 02/23/25 05:15 Completed CMP [Comprehensive Metabolic Panel] Stat Lab 02/23/25 04:30 Completed Mag [Magnesium] Stat Lab 02/23/25 04:30 Completed Phosphorous Stat Lab 02/23/25 04:30 Completed Ipratropium [place] Rt Corry [Atrovent Rt Corry] Med 02/23/25 03:31 Discontinued 1 mg INH X1 ONE Levalbuterol Rt [Xopenex Rt Corry] Med 02/23/25 03:31 Discontinued 5 mg INH X1 ONE Magnesium Sulfate 2 GM Ivpb [Magnesium Sulfate Ivpb] Med 02/23/25 04:16 Active 2 gm in 50 ml IV X1 MethylPREDNISolone.* [SoluMEDROL Inj] Med 02/23/25 03:31 Discontinued 125 mg IVP X1 ONE Sodium Chloride Rt Corry 0.9% [NS Rt Corry 0.9%] Med 02/23/25 03:31 Active 3 ml INH PRN PRN Oxygen Delivery NOW RT 02/23/25 03:31 Active Vital Signs Vital signs: Vital Signs Temperature 98.1 F 02/23/25 03:25 Pulse Rate 109 H 02/23/25 03:25 Respiratory Rate 26 H 02/23/25 03:25 Blood Pressure 122/69 02/23/25 03:25 Pulse Oximetry (%) 90 L 02/23/25 03:25 Oxygen Delivery Method Room Air 02/23/25 03:25 Discharge Plan Plan Patient Disposition: HOME (Self Care) Discharge Disposition comment: stable at discharge Patient condition on transfer: Stable Prescriptions/Referrals Prescriptions/Med Rec: New prednisone 20 mg tablet 40 mg PO QDAY 5 Days Qty: 10 0RF No Action cyclobenzaprine 5 mg tablet 5 mg PO TID PRN (Reason: muscle spasm) Qty: 14 0RF naproxen 500 mg tablet 500 mg PO BID PRN (Reason: pain) Qty: 30 0RF ondansetron 4 mg tablet,disintegrating 4 mg PO Q8H PRN (Reason: nausea and vomiting) Qty: 14 0RF ondansetron 8 mg tablet,disintegrating 8 mg PO Q8H PRN (Reason: nausea and vomiting) Qty: 30 0RF cefdinir 300 mg capsule 300 mg PO BID Qty: 14 0RF ibuprofen [IBU] 800 mg tablet 800 mg PO Q8H Qty: 20 0RF hydrocodone-acetaminophen 5-325 mg tablet 1 tab PO Q8H MDD 3 PRN (Reason: pain) Qty: 7 0RF albuterol sulfate 90 mcg/actuation HFA aerosol inhaler 2 puff inhalation Q6H PRN (Reason: wheezing) 5 Days Qty: 8.5 6RF Rx Instructions: administer with spacer Problem List Clinical Impression: Asthma with exacerbation Patient/Caregiver Discharge Instructions Other Activity Instructions:: Take Prednisone 40 mg once a day for total 5 days Continue using Albuterol inhaler as needed for SOB or wheezing Follow up with your PCP as outpatient In case of worsening Signs/symptoms, call 911 or come back to the ED Education Materials: Discharge Instructions for Asthma, Controlling Your Asthma Print Language: [place] Stand Alone Forms: [facility] Award Info., Patient Portal Info Letter MDM Narrative Sign Out note: Patient most likely has acute asthma exacerbation. She was given Xopenex, ipratropium magnesium 2 g and Solu-Medrol x 1. Labs were unremarkable.CXR showed no active disease. Recommended to take Prednisone 40 mg once a day for total 5 days Continue using Albuterol inhaler as needed for SOB or wheezing Follow up with your PCP as outpatient In case of worsening Signs/symptoms, call 911 or come back to the ED Medication Administration(s) Medication Administration History Magnesium Sulfate (Magnesium Sulfate Ivpb) 2 gm in 50 mls @ 25 mls/hr IV X1 ONE Stop: 02/23/25 06:15 Last Admin: 02/23/25 05:06 Dose: 25 mls/hr Documented By: JUD Sodium Chloride (Sodium Chloride Rt Corry 0.9% 3 Ml Nebu) 3 ml INH PRN PRN PRN Reason: SOLN Stop: 03/25/25 03:30 Last Admin: 02/23/25 03:41 Dose: 3 ml Documented By: BHAVESH Discontinued Medications Ipratropium [place] (Ipratropium Rt 0.5 Mg/ 2.5 Ml Nebu) 1 mg INH X1 ONE Stop: 02/23/25 03:32 Last Admin: 02/23/25 03:42 Dose: 1 mg Documented By: BHAVESH Levalbuterol HCl (Levalbuterol Rt 1.25 Mg/0.5 Ml Nebu) 5 mg INH X1 ONE Stop: 02/23/25 03:32 Last Admin: 02/23/25 03:41 Dose: 5 mg Documented By: BHAVESH Methylprednisolone Sodium Succinate (Methylprednisolone Sod Succ 62.5 Mg/Ml 2ml Vial) 125 mg IVP X1 ONE Stop: 02/23/25 03:32 Last Admin: 02/23/25 03:56 Dose: 125 mg Documented By: JUD
[2025-02-23] MEDS: Magnesium Sulfate 2 GM Ivpb 2 GM/50 ML BAG IV (05:06)
[2025-02-23 05:20] VITALS: BP 120/71; PULSE 105; RESP 18; O2SAT 94
[2025-02-23 05:22] LABS: Alanine Aminotransferase 15 U/L (10-49); Albumin, Serum 4.2 gm/dL (3.5-5.0); Albumin/Globulin Ratio 1.6 (1.2-2.2); Alkaline Phosphatase 47 U/L (46-116); Anion Gap 10 (7-16); Aspartate Amino Transferase 12 U/L (0-34); BUN/Creatinine Ratio 15 Ratio (12-20); Bilirubin,Total 0.4 mg/dL (0.3-1.2); Blood Urea Nitrogen 9 mg/dL (9-23); Calcium 8.8 mg/dL (8.3-10.6); Calcium (Corrected) 8.8 mg/dL (8.5-10.1); Carbon Dioxide 22.4 mMol/L (20.0-31.0); Chloride 107 mMol/L (98-107); Creatinine (Component) 0.6 mg/dL (0.6-1.3); Estimated Creatinine Clearance 156.6 mL/min (>60); Globulin 2.7 gm/dL (2.3-3.5); Glucose 91 mg/dL (74-106); Magnesium 1.7 mg/dL (1.6-2.6); Osmolality,Calculated 276 (275-295); Phosphorous 3.3 mg/dL (2.4-5.1); Potassium 3.8 mMol/L (3.4-5.1); Sodium 139 mMol/L (136-145); Total Protein 6.9 gm/dL (5.7-8.2); eGFR > 60 See Note
[2025-02-23 05:22] LABS: Basophils % (Auto) 0 % (0-2.5); Eosinophils # (Auto) 0.3 Thou/mm3 (0.0-0.5); Eosinophils % (Auto) 3 % (0-10); Hematocrit 34.1 % (36.0-46.0); Immature Granulocytes % (Auto) 1 % (0-0); Immature Granulocytes Auto 0.07 Thou/mm3 (0.00-0.00); Lymphocytes # (Auto) 1.7 Thou/mm3 (1.0-4.8); Lymphocytes % (Auto) 18 % (10-50); Mean Corpuscular HGB Conc 35.2 g/dl (31.0-37.0); Mean Corpuscular Hemoglobin 30.1 pg (25.0-35.0); Mean Corpuscular Volume 86 fL (80-100); Monocytes # (Auto) 0.3 Thou/mm3 (0.0-0.8); Monocytes % (Auto) 3 % (0-12); Neutrophils # (Auto) 7.2 Thou/mm3 (1.8-7.7); Neutrophils % (Auto) 75 % (37-80); Nucleated Red Blood Cell % 0 /100 WBC (0); Platelet Count 221 Thou/mm3 (140-440); RDW Standard Deviation 40.8 fL (36.4-46.3); Red Blood Count 3.99 Miln/mm3 (4.00-5.20); White Blood Count 9.6 Thou/mm3 (3.6-11.0)
[2025-02-23 06:03] VITALS: BP 128/78; PULSE 106; RESP 18; TEMP 36.8; O2SAT 97
== END 2025-02-23 06:07 | disposition home or self-care (01) ==
PROVIDERS: Student in an Organized Health Care Education/Training Program; Emergency Provider Emergency Medicine; PCP Family Medicine
DX: O99.512 Diseases of the respiratory system complicating pregnancy, second trimester (principal); J45.901 Unspecified asthma with (acute) exacerbation; Z3A.20 20 weeks gestation of pregnancy
CPT/HCPCS: 36415; 71045; 80053; 83735; 84100; 85025; 93005; 94644; 96365; 96375; 99284; J2919; J3475

== ENCOUNTER 2025-03-12 12:53 | Observation (INO) | payer OTHER, SELFPAY ==
[2025-03-12 12:55] VITALS: BP 109/63; PULSE 76; RESP 20; RESP 98; TEMP 36.6
[2025-03-12 13:10] VITALS: BP 109/63; PULSE 76
[2025-03-12 13:18] VITALS: BMI 29.7
[2025-03-12 13:41] VITALS: BP 116/66; PULSE 75
[2025-03-12] MEDS: INDOMETHACIN 25 MG CAPSULE 100 MG PO (13:47)
[2025-03-12 14:32] LABS: Collection Type, Urine Clean Catch
[2025-03-12 14:48] LABS: Bilirubin,Urine Negative (Negative); Blood,Urine Negative (Negative); Budding Yeast,Urine Present; Clarity,Urine Turbid (Clear/Hazy); Color,Urine Lt-Yellow (Lt Yel-Yel); Culture Indicated,Urine Not Indicated; Glucose, Urine Negative (Negative); Ketones,Urine Negative (Negative); Leukocyte Esterase,Urine Negative (Negative); Nitrite,Urine Negative (Negative); PH,Urine 6.5 (5.0-7.0); Protein,Urine Negative (Neg - Trace); RBC,Urine 3 /hpf (0-3); Specific Gravity,Urine 1.018 (1.001-1.035); Squamous Epithelial Cell,Urine < 1 /hpf (0-5); Urobilinogen,Urine Negative mg/dL (0.0-1.0); WBC,Urine 4 /hpf (0-5)
[2025-03-12 14:51] VITALS: BP 111/69; PULSE 61
== END 2025-03-12 15:15 | disposition home or self-care (01) ==
PROVIDERS: Admitting Provider Specialist; PCP Family Medicine; Visit Provider Specialist
DX: O36.8120 Decreased fetal movements, second trimester, not applicable or unspecified (principal); O26.892 Other specified pregnancy related conditions, second trimester; M54.50 Low back pain, unspecified; R10.30 Lower abdominal pain, unspecified; Z3A.21 21 weeks gestation of pregnancy
CPT/HCPCS: 59025; 59899; 81001; A9270

== ENCOUNTER 2025-03-24 05:55 | Inpatient (IN) | payer OTHER, SELFPAY ==
[2025-03-24] VITALS (58 sets, daily range): BP systolic 104–122; BP diastolic 58–76; PULSE 87–108; RESP 20–98; TEMP 36.1–36.9; O2SAT 93–100; BMI 29.5
--- NOTE | 2025-03-24 06:19 | XR_ITS ---
Examination: Complete OB ultrasound greater than 14 weeks Date and time of exam: March 24, 2025, 0719 hours INDICATIONS: Pelvic cramping beginning 2 days ago Findings: Viable intrauterine single fetus with single amniotic sac presentation cephalic spine anterior Cardiac motion 148 BPM Placenta posterior fundal grade 2 Umbilical cord insertion seen Amniotic fluid index 11.8 cm Cervix 4.0 cm Ovaries obscured by bowel gas. Composite estimated gestational age based on BPD, head circumference, abdominal circumference, femur length is 24 weeks 5 days Estimated weight 688.8 g. Survey of intracranial anatomy, spinal anatomy, abdominal anatomy, four-chamber heart performed with no abnormalities identified. Impression: Viable intrauterine gestation in cephalic presentation.
--- NOTE | 2025-03-24 06:20 | XR_ITS ---
Examination: Duplex scan of the lower extremity, unilateral left complete Date and time of exam: March 24, 2025 0733 hours INDICATIONS: Left leg swelling and pain beginning 2 days ago Technique: Duplex scan of the extremity veins using B-mode/grayscale imaging and Doppler spectral analysis and color flow Attention is directed to internal echogenicity, compression and augmentation involving these veins, color flow assessment, spectral analysis Findings: Extensive acute deep vein thrombus, involving common femoral superficial femoral popliteal peroneal posterior tibial veins and superficial greater saphenous vein IMPRESSION: Positive for extensive deep vein thrombus
[2025-03-24] MEDS: RINGERS LACTATED 1000 ML 1,000 ML 999 ML IV (06:35)
[2025-03-24] MEDS: ONDANSETRON INJ 2 MG/ML INJ 2 ML 4 MG IVP ×2 (06:43→12:59)
[2025-03-24 06:57] LABS: Collection Type, Urine Clean Catch
--- NOTE | 2025-03-24 06:59 | XR_ITS ---
Examination: Retroperitoneal ultrasound, complete Technique: Multiple high resolution grayscale images of the retroperitoneum obtained, including kidneys and bladder. Exam date and time:March 24, 2025 0727 hours Pelvic cramping and flank pain beginning 2 days ago. FINDINGS: Right kidney 9.6 cm renal cortex 1.7 cm Minimal hydronephrosis Left kidney 12.0 cm cortex 2.9 cm 9 mm mid pole calculus Mild renal parenchymal scar formation Contracted urinary bladder IMPRESSION: Minimal right hydronephrosis 9 mm mid pole left renal calculus
[2025-03-24 07:02] LABS: Basophils % (Auto) 0 % (0-2.5); Eosinophils # (Auto) 0.1 Thou/mm3 (0.0-0.5); Eosinophils % (Auto) 1 % (0-10); Hematocrit 38.9 % (36.0-46.0); Hemoglobin 13.3 g/dL (12.0-16.0); Immature Granulocytes % (Auto) 1 % (0-0); Immature Granulocytes Auto 0.06 Thou/mm3 (0.00-0.00); Lymphocytes # (Auto) 1.2 Thou/mm3 (1.0-4.8); Lymphocytes % (Auto) 11 % (10-50); Mean Corpuscular HGB Conc 34.2 g/dl (31.0-37.0); Mean Corpuscular Hemoglobin 30.7 pg (25.0-35.0); Mean Corpuscular Volume 90 fL (80-100); Monocytes # (Auto) 0.7 Thou/mm3 (0.0-0.8); Monocytes % (Auto) 7 % (0-12); Neutrophils # (Auto) 8.2 Thou/mm3 (1.8-7.7); Neutrophils % (Auto) 80 % (37-80); Nucleated Red Blood Cell % 0 /100 WBC (0); Platelet Count 197 Thou/mm3 (140-440); RDW Standard Deviation 44.1 fL (36.4-46.3); Red Blood Count 4.33 Miln/mm3 (4.00-5.20); White Blood Count 10.3 Thou/mm3 (3.6-11.0)
--- NOTE | 2025-03-24 07:13 | PD.LDANTE ---
Documentation for date of: 03/24/25 OB Labor/Induct. HPI History of Present Illness Chief complaint: Acute LLQ pain, redness and pain in L leg : 1 Para: 0 Term pregnancies: 0 pregnancies: 0 Living children: 0 History of Abortions: Spontaneous and Elective: 0 History of Vaginal deliveries: 0 History of sections: No History of : No EV: 07/12/25 Gestational Age (weeks): 24 Indication for induction: medical complication History of present illness: Patient is a 34-year-old G1, P0 at 24 weeks with all care largely uncomplicated with Dr Lu. She has a known 16 cm fibroid on her left side of her uterus. She presented to triage with severe nausea and vomiting for 2 days. No fevers or chills. Patient states that she is pain in her left lower quadrant and in her legs she feels her leg is very tight swollen and red. Patient tells me that her mother had a DVT. Her dad of a stroke. Patient has not been on blood thinners this . She is being evaluated in OB triage. An OB ultrasound was ordered stat along with renal ultrasound and an ultrasound of her lower extremity. History of Present Dating criteria: LMP confirmed by 1st trimester US Adequate Care: Yes Ultrasounds: normal 1st trimester US Abnormal ultrasound findings: Patient has a 16 cm fibroid in her uterus. Obstetrical complications: other (Large uterine fibroid) Medical complications: none Past Medical History Surgical History SURGICAL: Negative Section Meds Home Medications and Allergies Home Medications ?Medication ?Instructions ?Recorded ?Confirmed ?Type vitamin no.45-iron-FA 28 1 tab PO DAILY 03/24/25 03/24/25 History mg iron-1 mg chewable tablet Allergies Allergy/AdvReac Type Severity Reaction Status Date / Time No Known Allergies Allergy Verified 03/24/25 06:02 OB Exam Physical Exam Vital signs: Temp Pulse Resp BP Pulse Ox 98.5 F 102 H 20 113/58 L 96 03/24/25 07:06 03/24/25 07:06 03/24/25 07:06 03/24/25 07:06 03/24/25 07:10 Narrative: Patient's abdomen is soft she has a large mass in her left upper quadrant I can palpate through her abdomen. She has a erythematous left extremity with swelling and pain. No rebound guarding she has back pain in her left sciatic region. Detailed Labor and Delivery Exam Membranes: intact monitor accelerations: 10x10 OB Results Labs 03/24/25 06:45 03/24/25 06:45 Labs: Short CBC 03/24/25 Range/Units 06:45 WBC 10.3 (3.6-11.0) Thou/mm3 Hgb 13.3 (12.0-16.0) g/dL Hct 38.9 (36.0-46.0) % Plt Count 197 (140-440) Thou/mm3
[2025-03-24 07:21] LABS: Alanine Aminotransferase 12 U/L (10-49); Albumin/Globulin Ratio 1.4 (1.2-2.2); Alkaline Phosphatase 79 U/L (46-116); Amylase 42 U/L (30-118); Anion Gap 13 (7-16); Aspartate Amino Transferase 12 U/L (0-34); BUN/Creatinine Ratio 13 Ratio (12-20); Bilirubin,Total 0.6 mg/dL (0.3-1.2); Blood Urea Nitrogen 8 mg/dL (9-23); Calcium 8.7 mg/dL (8.3-10.6); Calcium (Corrected) 8.7 mg/dL (8.5-10.1); Carbon Dioxide 20.5 mMol/L (20.0-31.0); Chloride 106 mMol/L (98-107); Creatinine (Component) 0.6 mg/dL (0.6-1.3); Estimated Creatinine Clearance 158.4 mL/min (>60); Globulin 2.8 gm/dL (2.3-3.5); Glucose 86 mg/dL (74-106); Lipase 33 U/L (12-53); Osmolality,Calculated 274 (275-295); Potassium 4.2 mMol/L (3.4-5.1); Sodium 139 mMol/L (136-145); Total Protein 6.8 gm/dL (5.7-8.2); eGFR > 60 See Note
[2025-03-24 07:35] LABS: Amorphous Crystals,Urine Present (Absent); Bacteria,Urine 3+; Bilirubin,Urine 1+ (Negative); Blood,Urine Negative (Negative); Clarity,Urine Turbid (Clear/Hazy); Color,Urine Yellow (Lt Yel-Yel); Glucose, Urine Negative (Negative); Hyaline Casts,Urine < 1 /hpf (0-1); Ketones,Urine Negative (Negative); Leukocyte Esterase,Urine Positive (Negative); Nitrite,Urine Negative (Negative); Protein,Urine 1+ (Neg - Trace); RBC,Urine 6 /hpf (0-3); Specific Gravity,Urine 1.035 (1.001-1.035); Squamous Epithelial Cell,Urine 5 /hpf (0-5); WBC,Urine 9 /hpf (0-5)
[2025-03-24] MEDS: ACETAMINOPHEN IVPB 1,000 MG/100 ML VIAL 250 MG IV ×3 (07:35→21:07)
[2025-03-24] MEDS: RINGERS LACTATED 1000 ML 1,000 ML 125 ML IV ×2 (07:43→17:42)
[2025-03-24] MEDS: BETAMET ACET/BETAMET NA PH (Celestone) 6 MG/ML VIAL 12 MG IM (10:16)
[2025-03-24 11:36] LABS: Prothrombin Time 10.9 Seconds (9.0-12.2)
[2025-03-24 11:45] LABS: Creatine Kinase 38 U/L (34-171)
--- NOTE | 2025-03-24 11:47 | ESCONSULT_ITS ---
<Statement entered by Josue Moulton MD - 03/24/25 21:52> I discussed with and supervised the media relations intern physician involved in the care of this patient. Patient assessment and plan was discussed with entire medicine team, including my attending. I agree with the assessment and plan as documented by media relations intern doctor. Patient care was discussed with my attending physician Dr.Tingle Josue Moulton, PGY-2 HPI Data of Consult Requesting Physician: Mihir Ward MD Admitting Provider: Kandis Aleman MD ([facility]) Attending Provider: Mihir Ward MD Primary Care Provider: Physician No Primary/Family Consult Narrative Reason for consult: DVT History of present illness: A 35-year-old female G1, P0 at 24 weeks of gestation, with no significant past medical history except for fibroid on her left side of the uterus following Dr. Lu presented to the hospital with chief complaints of pain and swelling in left lower extremity since 2 days. Patient reported that she was apparently normal 2 days ago then noticed pain and on the day before admission patient noted increased swelling and difficulty walking for which patient came to the hospital and and diagnosed to have DVT in left lower extremity for which internal medicine was consulted. Patient denies recent surgeries, immobilization, oral contraceptive pill usage, smoking, previous abortions. Reported that her mother was diagnosed with DVT at the age of 60 but her mother was known to have multiple comorbidities. ED course: Vitals are stable at the time of admission except for tachycardia with pulse rate around 102. Labs are unremarkable. Urinalysis showed turbid urine with 1+ proteinuria, 6 RBC, 9 WBC, 3+ bacteria. ultrasound showed viable intrauterine gestation in cephalic presentation. Venous Doppler showed extensive acute deep vein thrombus involving common femoral superficial femoral, popliteal, peroneal, posterior tibial veins and superficial greater saphenous vein. Renal ultrasound showed minimal right hydronephrosis, 9 mm midpole left renal calculus No significant past medical and surgical history except for Asthma, on albuterol inhaler Denies smoking, alcohol, other illicit drug abuse cc:: cc: Mihir Ward MD Review of Systems Review of Systems Systems Reviewed: All systems reviewed, normal except as documented Exam Vital Signs Temp Pulse Resp BP Pulse Ox O2 Del Method 97.6 F 93 23 H 104/75 98 Room Air 03/24/25 10:43 03/24/25 10:43 03/24/25 10:43 03/24/25 10:43 03/24/25 10:43 03/24/25 10:43 Narrative Exam General: Awake. HEENT: Normocephalic, atraumatic, mucous membranes moist. Heart: Regular rate and rhythm, no murmurs. Lungs: Clear to auscultation with no wheezing or crackles. Abdomen: Soft, nontender, positive bowel sounds. ?No guarding or rebound tenderness. Uterus extending below xiphisternum Neurologic: Alert and oriented x3, no gross neurological deficit, and patient able to move all 4 extremities. Extremities: Noted swelling and tenderness in left lower extremity up to thigh Skin: No rash or ecchymoses. Results Labs 03/24/25 06:45 03/24/25 06:45 Labs: Short CBC 03/24/25 Range/Units 06:45 WBC 10.3 (3.6-11.0) Thou/mm3 Hgb 13.3 (12.0-16.0) g/dL Hct 38.9 (36.0-46.0) % Plt Count 197 (140-440) Thou/mm3 BMP 03/24/25 06:45 Sodium 139 Potassium 4.2 Chloride 106 Carbon Dioxide 20.5 BUN 8 L Creatinine 0.6 Glucose 86 Calcium 8.7 Cardiac Enzymes 03/24/25 Range/Units 06:45 Total Creatine Kinase 38 (34-171) U/L Liver Function 03/24/25 Range/Units 06:45 Total Bilirubin 0.6 (0.3-1.2) mg/dL AST 12 (0-34) U/L ALT 12 (10-49) U/L Alkaline Phosphatase 79 (46-116) U/L Albumin 4.0 (3.5-5.0) gm/dL Urine 03/24/25 Range/Units 06:45 Urine Color Yellow (Lt Yel-Yel) Urine Clarity Turbid A (Clear/Hazy) Urine pH 6.0 (5.0-7.0) Ur Specific Central 1.035 (1.001-1.035) Urine Protein 1+ A (Neg - Trace) Urine Glucose (UA) Negative (Negative) Quality Measures Quality Measures VTE prophylaxis and VTE therapy Medications Home Medications and Allergies Home Medications ?Medication ?Instructions ?Recorded ?Confirmed ?Type vitamin no.45-iron-FA 28 1 tab PO DAILY 03/2403/24/25 History mg iron-1 mg chewable tablet Allergies Allergy/AdvReac Type Severity Reaction Status Date / Time No Known Allergies Allergy Verified 03/24/25 06:02 Visit Medications Betamethasone Acet/Betameth SodPhos (Betamet Acet/Betamet Na Ph (Celestone) 6 Mg/Ml Vial) 12 mg IM QDAY [facility] Stop: 04/23/25 09:29 Last Admin: 03/24/25 10:16 Dose: 12 mg Acetaminophen (Ofirmev Inj) 1,000 mg in 100 mls @ 250 mls/hr IV Q6H SOFY Stop: 03/25/25 01:30 Last Admin: 03/24/25 07:35 Dose: 250 mls/hr Lactated Ringer's (Lactated Ringers) 1,000 mls @ 125 mls/hr IV .Q8H SOFY Stop: 04/23/25 07:35 Last Admin: 03/24/25 07:43 Dose: 125 mls/hr Heparin Sodium/Dextrose (Heparin In D5w Ivpb) 25,000 unit in 250 mls @ 16.426 mls/hr IV .[id number] [facility]; Protocol Stop: 03/25/25 11:44 Ondansetron HCl (Ondansetron Inj 2 Mg/Ml Inj 2 Ml) 4 mg IVP Q6HR PRN; Protocol PRN Reason: NAUSEA OR VOMITING Stop: 04/23/25 06:18 Last Admin: 03/24/25 06:43 Dose: 4 mg Discontinued Medications Lactated Ringer's (Lactated Ringers) 1,000 mls @ 999 mls/hr IV .Q1H1M ONE Stop: 03/24/25 07:17 Last Admin: 03/24/25 06:35 Dose: 999 mls/hr Assessment & Plan Plan A 35-year-old female G1, P0 at 24 weeks of gestation, with no significant past medical history except for fibroid on her left side of the uterus following Dr. Lu presented to the hospital with chief complaints of pain and swelling in left lower extremity since 2 days and diagnosed to have left lower extremity DVT # Left lower extremity DVT # Risk factors: - Presented with to the hospital with pain and swelling in left lower extremity since 2 days - Patient denies shortness of breath, chest pain, smoking - Vitals are stable except for mild tachycardia with heart rate 102. - On physical examination, noted swelling and tenderness in the left lower extremity - Venous Doppler showed extensive acute deep vein thrombus involving common femoral superficial femoral, popliteal, peroneal, posterior tibial veins and superficial greater saphenous vein. Plan - Patient was started on heparin drip, will start enoxaparin after discussing with INFECTIOUS DISEASE TECHNICIAN team - Ultrasound abdomen is ordered to look for extent of DVT - Will watch for bleeding manifestations - Patient requires coagulable workup, cannot be done as patient is currently on heparin and in the view of acute DVT - Recommend to follow-up with repeat Doppler of lower extremity in 3 months # Asthma, well-controlled - Patient is using albuterol inhaler as needed continue - Started on nebulizations as needed Patient plan of care was discussed with the attending physician, Dr. Flynn and senior resident Dr. Saige Patten, PGY1 Attending Provider Attestation/Addendum I have discussed and was present for the essential components of the history, physical examination, diagnosis, and treatment plan with the resident. I agree with the patient's care as documented by the resident and amended herein by me. Nabeel Flynn, DO. Patient seen and evaluated this afternoon. In short internal medicine has been consulted for Ms. Rosado who is a 34-year-old female at 24 weeks gestation with a reported past medical history of asthma, admitted this morning under the care of OB for acute left lower leg pain, edema and erythema which began approximately 2 days prior to admission. Patient states this is the first time this has happened, she did state her mother who at approximately 60 years old with various comorbidities to include COPD and diabetes, also had a deep vein thrombosis at approximately age 60. Patient was subsequently diagnosed with an extensive left lower extremity DVT involving the common femoral superficial femoral popliteal peroneal posterior tibial veins and superficial greater saphenous veins. A renal ultrasound was also obtained which demonstrated minimal right hydronephrosis and a 9 mm midpole left renal calculus. A ultrasound also ordered demonstrated viable intrauterine . Per chart review, the patient also has a rather large 16 cm fibroid in her uterus which she states will be removed following her . An abdominal ultrasound was also ordered to assess for any DVT up in the pelvic area, the right common femoral and iliac veins appear patent, the left common femoral vein demonstrates a DVT, the left common iliac veins appear normal. The entire IVC appears to be patent with no indication of DVT. The patient is on room air, no signs of respiratory distress. A BNP and troponin has been ordered as well as a chest x-ray. I have also ordered a VQ scan considering the patient's mild tachycardia, if this is positive for PE we will consult Dr. Billings for further recommendations. Will keep on heparin drip for now until PE ruled out. Initially, ICU team consulted for anticoagulation management however this was readily downgraded to the medicine team as we can manage anticoagulation outside of the ICU. The patient was initially started on heparin drip by OB which will be continued at this time however patient will need therapeutic Lovenox dosing at 90 mg twice daily at time of discharge for minimum of 3 months. Antepartum risk factors for venous thromboembolism include possible UTI although patient is asymptomatic, BMI and near advanced maternal age. There also may be a genetic component considering her mother's DVT however this may be due to other causes. I will recommend that after patient complete her course of anticoagulation in the future, she follows up with hematology for hypercoagulability workup. We appreciate the opportunity to participate in the care and management of this patient Although this document has been carefully reviewed, there may still be some phonetic and other typographical errors. These errors are purely grammatical due to imperfections in the software program and should not be construed in any way to compromise the substance of the patient's medical care during this visit.
[2025-03-24 12:27] LABS: Partial Thromboplastin Time 29.1 Seconds (22.0-36.0)
[2025-03-24] MEDS: HEPARIN SOD INJ 5000 UNIT/ML VIAL 7300 UNIT IV (12:52)
[2025-03-24] MEDS: Heparin/D5w 25K 250 ML Ivpb 25,000 UNIT/250 ML BAG 16.426 UNIT IV (12:53)
--- NOTE | 2025-03-24 13:00 | PC.NURSE ---
assumed care of patient
--- NOTE | 2025-03-24 14:58 | XR_ITS ---
Examination: Abdomen sonogram, Limited Date and time of exam: March 24, 2025 at 1506 hours INDICATIONS: Extensive DVT on left leg Doppler sonogram March 24, 2025, 25 week , assess inferior vena cava and more cephalad venous structures above the leg DVT Technique: Real-time jimenez scale transabdominal sonographic images of the upper abdomen obtained. Findings: Normal IVC, no thrombus in the entire visualized inferior vena cava IMPRESSION: No thrombus visualized in the entire inferior vena cava
--- NOTE | 2025-03-24 14:58 | XR_ITS ---
Examination: Abdomen sonogram, Limited Date and time of exam: March 24, 2025 1511 hours INDICATIONS: 24 week with positive DVT left extremity, lower March 24, 2025 Technique: Real-time jimenez scale transabdominal sonographic images of the upper abdomen obtained. Findings: Right common femoral right common iliac arteries are clear Positive for deep vein thrombus in the left common femoral vein with minimal flow The left common iliac vein in the pelvis appears open IMPRESSION: Right common femoral vein and right iliac vein are open no thrombus Left common femoral vein positive for DVT, the left common iliac vein appears normal
[2025-03-24] MEDS: ALBUTEROL/IPRATROPIUM (Duoneb) RT SOL 3 ML NEBU INH (16:29)
--- NOTE | 2025-03-24 17:24 | XR_ITS ---
Examination: AP chest single view TECHNIQUE: AP portable upright chest single view Date and time: March 24, 2025 1737 hours Comparison February 23, 2025 INDICATIONS: History extensive deep vein thrombus left lower extremity on venous Doppler March 24 2025 FINDINGS: Normal heart size No pneumonia or pulmonary infarction No pulmonary edema The osseous structures are intact IMPRESSION: No pneumonia or pulmonary infarction
[2025-03-24 18:38] LABS: Troponin I 0.022 ng/mL (0.0-0.045)
[2025-03-24 18:44] LABS: B-Type Natriuretic Peptide 119 pg/mL (0-100)
[2025-03-24 19:17] LABS: Partial Thromboplastin Time 38.7 Seconds (22.0-36.0)
[2025-03-24] MEDS: HEPARIN SOD INJ 5000 UNIT/ML VIAL 3650 UNIT IV (21:09)
[2025-03-25] VITALS (8 sets, daily range): BP systolic 108–126; BP diastolic 65–73; PULSE 73–107; RESP 13–20; TEMP 36–37; O2SAT 93–100; BMI 29.7
[2025-03-25] MEDS: RINGERS LACTATED 1000 ML 1,000 ML 125 ML IV ×3 (01:43→18:39)
[2025-03-25] MEDS: ACETAMINOPHEN IVPB 1,000 MG/100 ML VIAL 250 MG IV (01:43)
[2025-03-25 04:21] LABS: Partial Thromboplastin Time 55.2 Seconds (22.0-36.0)
[2025-03-25] MEDS: Heparin/D5w 25K 250 ML Ivpb 25,000 UNIT/250 ML BAG 18.251 UNIT IV (05:36)
--- NOTE | 2025-03-25 08:07 | ESPR_ITS ---
Documentation for date of: 03/25/25 [employer]LL[employer]TER [employer] Subjective Subjective Interval history: No vaginal bleeding or abdominal or pelvic pain. Normal movement. No chest pain or palpitations. Exam Vital Signs Temp Pulse Resp BP Pulse Ox O2 Del Method 97.7 F 83 14 108/65 100 Room Air 03/25/25 04:00 03/25/25 04:00 03/25/25 04:00 03/25/25 04:00 03/25/25 04:00 03/25/25 04:00 Routine Respiratory Exam Comments: Clear to auscultation bilaterally Routine Cardiovascular Exam Comments: Regular rate and rhythm Routine Abdominal Exam Comments: Gravid nontender uterus Urinary Catheter Management Cath placed during this visit: no COLLAR SETTER OVERLOCK - PN: Obj Data Labs 03/24/25 06:45 03/24/25 06:45 Labs: Laboratory Results - last 24 hr 03/24/25 03/24/25 03/24/25 06:45 17:58 18:52 PT 10.9 INR 1.0 APTT 29.1 38.7 H Total Creatine Kinase 38 Troponin I 0.022 B-Natriuretic Peptide 119 H 03/25/25 03:28 PT INR APTT 55.2 H D Total Creatine Kinase Troponin I B-Natriuretic Peptide Impressions Impression: Intrauterine at 23w1d by a 7w0d ultrasound performed at [facility] on 12/02/24 giving EDC 07/21. Large fundal intramural leiomyoma (16 x 15 x 15 cm) extending to her left upper quadrant with intermittent abdominal pain due to degeneration Extensive deep vein thrombosis left common femoral, superficial femoral, popliteal, peroneal, posterior tibial veins without involvement of the internal iliac Plan is transition from Heparin after 48 hours to a therapeutic dose of Lovenox and then possible discharge with close follow up. Dr Pérez - Maternal Medicine in [place] has been following her and she has an appointment with him next week. Recommend Hematology follow up as outpatient. Transfer to higher level of care may be indicated if worsening abdominal discomfort from the large fibroid and growing uterus becomes intolerable. She is high risk for labor and delivery and hemorrhage and the baby is reaching viability where survival would be optimized in a tertiary care setting. COLLAR SETTER OVERLOCK - A/P Time Spent With Patient Time: Total time spent is greater than 50% in coordination of care (as documented) at patient's floor/unit and/or counseling patient: Time with patient: 25 - 35 minutes
[2025-03-25] MEDS: ALBUTEROL/IPRATROPIUM (Duoneb) RT SOL 3 ML NEBU INH (09:19)
[2025-03-25] MEDS: BETAMET ACET/BETAMET NA PH (Celestone) 6 MG/ML VIAL 12 MG IM (09:52)
--- NOTE | 2025-03-25 10:39 | PC.SS ---
Addendum entered by Hali Shoemaker 03/25/25 13:35: SS informed patient she is showing as self pay with no insurance. SS offered linkage to [facility] Financial Counselor to apply for [employer]. However, patient declined due to [facility] and having . Patient stated she is connected to the [facility]. Original Note: SS met with patient at bedside to complete initial assessment. Patient confirmed her demographic information. She stated her primary medical surrogate decisionmaker is her sibling Marianna Rosado [phone]. Patient stated she is independent with both ADLs and ambulation. Preferred pharmacy: [facility]. PCP: Dr. Strange, last appt. was 09/2024. Next of kin: Sibling Marianna Rosado [phone] Discharge plan: Home, private vehicle. *If patient is unable to drive or care for self, she will be discharging to her sibling Marianna's home.
[2025-03-25 10:49] LABS: Partial Thromboplastin Time 39.1 Seconds (22.0-36.0)
[2025-03-25] MEDS: HEPARIN SOD INJ 5000 UNIT/ML VIAL 3650 UNIT IVP ×2 (11:34→18:36)
[2025-03-25] MEDS: Heparin/D5w 25K 250 ML Ivpb 25,000 UNIT/250 ML BAG 20.077 UNIT IV (12:27)
--- NOTE | 2025-03-25 13:26 | ESPR_ITS ---
<Statement entered by Josue Moulton MD - 03/26/25 16:14> We will continue heparin ggt for 48 hours and will transition to Lovenox afterwards. US of abdomen and pelvis showed no DVT upstream. Continue breathing treatments for asthma. I discussed with and supervised the internet manager physician involved in the care of this patient. Patient assessment and plan was discussed with entire medicine team, including my attending. I agree with the assessment and plan as documented by internet manager doctor. Patient care was discussed with my attending physician Dr. Mike Moulton, PGY-2 Documentation for date of: 03/25/25 Subjective Subjective Interval history: Patient is seen and examined at bedside No acute overnight events. Reported that she is having mild shortness of breath which was relieved after having nebulization treatment Vitals are stable except for mild tachycardia with heart rate around 90-100. Patient is currently on heparin drip Consulted vascular surgeon, Dr. Orellana on phone and he recommended to continue heparin drip for 48 hours and later transition to Lovenox for further management Abdominal ultrasound done yesterday showed no thrombus in the IVC Exam Vital Signs Temp Pulse Resp BP Pulse Ox O2 Del Method 96.8 F 107 H 20 125/68 97 Room Air 03/25/25 12:00 03/25/25 12:00 03/25/25 12:00 03/25/25 12:00 03/25/25 12:00 03/25/25 12:00 Narrative Exam General: Awake. HEENT: Normocephalic, atraumatic, mucous membranes moist. Heart: Regular rate and rhythm, no murmurs. Lungs: Clear to auscultation with no wheezing or crackles. Abdomen: Soft, nontender, positive bowel sounds. ?No guarding or rebound tenderness. Uterus extending below xiphisternum Neurologic: Alert and oriented x3, no gross neurological deficit, and patient able to move all 4 extremities. Extremities: Noted swelling and tenderness in left lower extremity up to thigh Skin: No rash or ecchymoses. Objective Labs 03/24/25 06:45 03/24/25 06:45 Labs: Laboratory Results - last 24 hr 03/24/25 03/24/25 03/25/25 17:58 18:52 03:28 APTT 38.7 H 55.2 H D Troponin I 0.022 B-Natriuretic Peptide 119 H 03/25/25 09:30 APTT 39.1 H D Troponin I B-Natriuretic Peptide Quality Measures Quality Measures VTE prophylaxis and VTE therapy Assessment & Plan Assessment Current Active Medications: Generic Name Dose Route Start Last Admin Trade Name Freq PRN Reason Stop Dose Admin Albuterol/Ipratropium 3 ml 03/24/25 15:46 03/25/25 09:19 Albuterol/Ipratropium (Duoneb) Rt Corry 3 Ml Nebu INH 04/23/25 15:45 3 ml Q2HR PRN Administration SHORTNESS OF BREATH OR WHEEZE Lactated Ringer's 1,000 mls @ 125 mls/hr 03/24/25 07:36 03/25/25 10:10 Lactated Ringers IV 04/23/25 07:35 125 mls/hr .Q8H SOFY Administration Heparin Sodium/Dextrose 25,000 unit in 250 mls @ 16.426 mls/hr 03/25/25 12:00 03/25/25 12:27 Heparin In D5w Ivpb IV 03/26/25 11:59 22 units/kg/hr .[id number] SOFY 20.077 mls/hr Administration Protocol 18 UNITS/KG/HR Ondansetron HCl 4 mg 03/24/25 06:19 03/24/25 12:59 Ondansetron Inj 2 Mg/Ml Inj 2 Ml IVP 04/23/25 06:18 4 mg Q6HR PRN Administration NAUSEA OR VOMITING Protocol Multivit/Folic Acid/Iron 1 tab 03/25/25 12:00 Vitamin/Fe Fum/Fa Tablet PO 04/24/25 11:59 QDAY SOFY Plan A 35-year-old female G1, P0 at 24 weeks of gestation, with no significant past medical history except for fibroid on her left side of the uterus following Dr. Lu presented to the hospital with chief complaints of pain and swelling in left lower extremity since 2 days and diagnosed to have left lower extremity DVT # Left lower extremity DVT # Risk factors: - Presented with to the hospital with pain and swelling in left lower extremity since 2 days - Patient denies shortness of breath, chest pain, smoking - Vitals are stable except for mild tachycardia with heart rate 102. - On physical examination, noted swelling and tenderness in the left lower extremity - Venous Doppler showed extensive acute deep vein thrombus involving common femoral superficial femoral, popliteal, peroneal, posterior tibial veins and superficial greater saphenous vein. - Ultrasound abdomen is ordered to look for extent of DVT - No thrombus in the IVC Plan - Patient was started on heparin drip,will continue for total duration of 48hrs - Will start enoxaparin after 48hrs till delivery - Will watch for bleeding manifestations - Patient requires coagulable workup, cannot be done as patient is currently on heparin and in the view of acute DVT - Recommend to follow-up with repeat Doppler of lower extremity in 3 months # Asthma, well-controlled - Patient is using albuterol inhaler as needed continue - Started on nebulizations as needed Patient plan of care was discussed with the attending physician, Dr. Mckeon and senior resident Dr. Saige Patten, PGY1 Attending Provider Attestation/Addendum I, Michelle Mckeon, , attest that I was physically present for the roa portions of the service and evaluated the patient with the resident and I reviewed and discussed the case with the resident and agree with the resident's findings and plans of care as documented above Patient seen and eval this a.m. Patient states that she continues to have some swelling of the lower extremity. Pulses are 2 out of 4 in the left lower extremity. Color of left lower extremity is normal and comparable to the right lower extremity. No tightness and mild tenderness to palpation. Patient reports some pain with ambulation and upon going to the bathroom. There had been concerns yesterday for possible phlegmasia cerulea dolens due to hyperpigmentation, duskiness of lower extremity yesterday. This appears to be much improved at this point. Patient remains on heparin drip. She denies any shortness of breath more than her usual as she suffers from asthma. She reported some dizziness prior to presentation at times. Discussed fall precautions and bleeding risks regarding full dose anticoagulation. Case was discussed with vascular surgeon over the phone who recommends continuation of anticoagulation for at least 48 hours. If worsening, patient may need a mechanical thrombectomy. VQ scan had been ordered yesterday, but this does not change the overall treatment of the DVT. Vitals appear to be stable. Risk outweighs the benefit at this time with exposure to fetus to radiation. Will continue with anticoagulation at this time. Patient verbalized understanding regarding radiation exposure. Mechanical thrombectomy would also expose patient to radiation during procedure if it is necessary. However, patient is much improved in comparison to yesterday which she also and herself endorses. Clinically speaking, phlegmasia cerulea dolens at this time is less likely as patient appears to be improving and there is no tightness upon palpation of left lower extremity, only mild tenderness. Vascular surgery recommends that patient keep leg elevated at all times at rest and recline. Patient is otherwise allowed to ambulate. Patient was counseled and reassured. In size to patient not to keep her legs down when she is seated only to keep it elevated. All questions and concerns were addressed at bedside to patient's understanding and satisfaction. She will ultimately need to be on Lovenox full dose on discharge and which can be discontinued prior to delivery. Patient will need anticoagulation for 3 to 6 months followed by 6 weeks .
[2025-03-25] MEDS: PRENATAL VITAMIN/FE FUM/FA TABLET 1 TAB PO (14:43)
--- NOTE | 2025-03-25 15:16 | PC.CC ---
Addendum entered and electronically signed by Bela Mckeon [facility] 03/25/25 15:39: Obtained signed Rx from Dr. Mckeon and [facility] Updated patient and requested her to call [facility] in one hour. Original Note: [facility] however patient does not have active Rx coverage on file. S/W patient at bedside, she only has [facility] benefits. She states she [facility] and they will authorize a 2 week supply until she can follow-up with her [facility] assigned OB Dr. Sahu. She gave [facility] fax [phone] and extensions [phone] to reach via phone. Patient also provide [facility] auth # [id number] which was relayed to TUNDE Aleman. S[facility]W [facility] who requested Rx and clinical notes to be faxed to them so that MD may review and send Rx with override to a local pharmacy if deemed necessary. They do not have hours over the weekend.
[2025-03-25] MEDS: ACETAMINOPHEN 500 MG TABLET PO (16:41)
--- NOTE | 2025-03-25 17:07 | EVENTNT_ITS ---
Documentation for date of: 03/25/25 Event Note Event Note: Rapid response is called around 4:55 PM on 03/25/2025 for new onset left back pain and bilateral groin pain. Vitals at the time of examination are within normal limits and patient is saturating well on room air without any tachycardia. On physical examination, noted tenderness in the lower left back pain. Patient was just given a dose of Tylenol 20 minutes before the rapid in view of groin pain. CAR AUDIO INSTALLER Dr. Clinton is also notified and recommended to look for heart. Dr. Clinton recommended the pain could be due to the large fibroid, the the pain in the bilateral groin could be due to radiation around the round ligaments due to fibroid. Patient plan of care was discussed with the attending physician, Dr. Mckeon and senior resident Dr. Saige Patten, PGY1
[2025-03-25 18:19] LABS: Partial Thromboplastin Time 45.6 Seconds (22.0-36.0)
--- NOTE | 2025-03-25 20:40 | ECHO_ITS ---
Transthoracic Echo Report Ht (in): 69 Wt (lb): 201 Exam Location: Echo Lab Status: Inpatient Marketing Information Coordinator: Arpita Sal Indications: Procedure Performed: BP: 108 / 65 HR: 83 MEASUREMENTS (Male / Female) Normal Values 2D ECHO LV Diastolic Diameter PLAX 5.0 cm 4.2 - 5.9 / 3.9 - 5.3 cm LV Systolic Diameter PLAX 3.3 cm IVS Diastolic Thickness 0.9 cm 0.6 - 1.0 / 0.6 - 0.9 cm LVPW Diastolic Thickness 0.7 cm 0.6 - 1.0 / 0.6 - 0.9 cm LV Relative Wall Thickness 0.3 LVOT Diameter 2.0 cm LA Volume Index 28.9 cm?/m? 16 - 28 cm?/m? DOPPLER AV Peak Velocity 138.0 cm/s AV Peak Gradient 7.6 mmHg LVOT Peak Velocity 122.0 cm/s LVOT Peak Gradient 6.0 mmHg AV Area Cont Eq pk 2.8 cm? MV Area PHT 3.4 cm? Mitral E Point Velocity 54.8 cm/s Mitral A Point Velocity 56.3 cm/s Mitral E to A Ratio 1.0 LV E' Lateral Velocity 19.2 cm/s Mitral E to LV E' Lateral Ratio 2.9 LV E' Septal Velocity 10.8 cm/s Mitral E to LV E' Septal Ratio 5.1 TR Peak Velocity 248.0 cm/s TR Peak Gradient 24.6 mmHg PV Peak Velocity 88.9 cm/s PV Peak Gradient 3.2 mmHg FINDINGS Left Ventricle Normal left ventricular size, wall thickness, systolic function with no obvious regional wall motion abnormalities.The left ventricular diastolic function is normal. The ejection fraction is visually estimated at 65 %. Right Ventricle The right ventricle is mildly enlarged. The right ventricular systolic function is normal. The estimated right ventricular systolic pressure, 29 mmHg. Left Atrium The left atrium is normal by two-dimensional, color flow and Doppler imaging with no structural abnormalities, no thrombus formation present. Right Atrium The right atrium is mildly enlarged. Atrial Septum The interatrial septum appears normal with no evidence of a shunt. Aorta The aorta is normal by two-dimensional, color flow and Doppler interrogation. Mitral Valve The mitral valve is normal by two-dimensional, color flow and Doppler interrogation. There is no significant mitral valve regurgitation, stenosis or prolapse. Aortic Valve The aortic valve is trileaflet and normal by two-dimensional, color flow and Doppler interrogation. There is no significant aortic valve regurgitation. Tricuspid Valve The tricuspid valve is normal by two-dimensional, color flow and Doppler interrogation. There is trace tricuspid regurgitation. Pulmonic Valve The pulmonic valve is not well visualized. There is trace pulmonic regurgitation. Vessels The pulmonary artery appears normal. The inferior vena cava pulmonary and hepatic veins appear normal. Pericardium The pericardium is normal by two-dimensional imaging. There is no significant pericardial effusion. CONCLUSIONS Indications: Possible PE, RV Strain Normal LV size and function. Estimated EF 55-60%. normal diastolic function Normal RV function. RVSP normal. Upper normal RV size. No clear evidence any RV strain. TraceTR and PI. No pericardial effusion. IVC normal size with >50% collapse with inspiration Prince Billings (Electronically Signed) Final Date: 25 March 2025 18:22
[2025-03-26] VITALS (9 sets, daily range): BP systolic 97–121; BP diastolic 63–82; PULSE 59–105; RESP 15–20; TEMP 35.9–36.4; O2SAT 90–99
[2025-03-26 00:53] LABS: Partial Thromboplastin Time 59.4 Seconds (22.0-36.0)
[2025-03-26] MEDS: Heparin/D5w 25K 250 ML Ivpb 25,000 UNIT/250 ML BAG 21.902 UNIT IV (01:16)
[2025-03-26] MEDS: RINGERS LACTATED 1000 ML 1,000 ML 125 ML IV ×3 (02:40→19:57)
[2025-03-26] MEDS: ACETAMINOPHEN 325 MG TABLET 650 MG PO (04:19)
--- NOTE | 2025-03-26 07:17 | PC.NURSE ---
0650- lab notified this RN about heparin IV connection not screwed to IV site of patient, upon entering patient room noticed IV connection on patient gown with part of gown soiled from heparin on opposite side, upon asking patient, patient stated she was sleeping and did not realize IV connection was not screwed on . patient educated the importance of medication.
[2025-03-26 07:29] LABS: Basophils % (Auto) 0 % (0-2.5); Eosinophils % (Auto) 0 % (0-10); Hematocrit 29.4 % (36.0-46.0); Hemoglobin 10.2 g/dL (12.0-16.0); Immature Granulocytes % (Auto) 1 % (0-0); Immature Granulocytes Auto 0.14 Thou/mm3 (0.00-0.00); Lymphocytes # (Auto) 1.2 Thou/mm3 (1.0-4.8); Lymphocytes % (Auto) 12 % (10-50); Mean Corpuscular HGB Conc 34.7 g/dl (31.0-37.0); Mean Corpuscular Hemoglobin 30.5 pg (25.0-35.0); Mean Corpuscular Volume 88 fL (80-100); Monocytes # (Auto) 0.6 Thou/mm3 (0.0-0.8); Monocytes % (Auto) 6 % (0-12); Neutrophils # (Auto) 8.4 Thou/mm3 (1.8-7.7); Neutrophils % (Auto) 81 % (37-80); Nucleated Red Blood Cell % 0 /100 WBC (0); Platelet Count 163 Thou/mm3 (140-440); RDW Standard Deviation 42.4 fL (36.4-46.3); Red Blood Count 3.34 Miln/mm3 (4.00-5.20); White Blood Count 10.5 Thou/mm3 (3.6-11.0)
[2025-03-26 07:37] LABS: Anion Gap 8 (7-16); BUN/Creatinine Ratio 15 Ratio (12-20); Blood Urea Nitrogen 6 mg/dL (9-23); Calcium 9.1 mg/dL (8.3-10.6); Carbon Dioxide 24.6 mMol/L (20.0-31.0); Chloride 104 mMol/L (98-107); Creatinine (Component) 0.4 mg/dL (0.6-1.3); Estimated Creatinine Clearance 245.2 mL/min (>60); Glucose 100 mg/dL (74-106); Osmolality,Calculated 271 (275-295); Sodium 137 mMol/L (136-145); eGFR > 60 See Note
[2025-03-26] MEDS: PRENATAL VITAMIN/FE FUM/FA TABLET 1 TAB PO (08:07)
[2025-03-26] MEDS: ALBUTEROL/IPRATROPIUM (Duoneb) RT SOL 3 ML NEBU INH (08:25)
[2025-03-26 08:26] LABS: Partial Thromboplastin Time 42.5 Seconds (22.0-36.0); Prothrombin Time 10.9 Seconds (9.0-12.2)
--- NOTE | 2025-03-26 08:39 | PC.NURSE ---
cephalexin ordered, verified with pharmacy ok to give with 24 week
[2025-03-26] MEDS: cephALEXin 250 MG CAPSULE 500 MG PO ×4 (09:58→21:03)
--- NOTE | 2025-03-26 10:35 | PC.NURSE ---
PTT results 42.5, notified Dr. Dave about heparin being off due to disconnection found during hand off. Dr. Dave ordered to repeat a stat ptt to confirm and then make adjustments to heparin drip based on new results.
[2025-03-26 10:53] LABS: Partial Thromboplastin Time 45.9 Seconds (22.0-36.0)
[2025-03-26] MEDS: HEPARIN SOD INJ 5000 UNIT/ML VIAL 3650 UNIT IVP (11:19)
--- NOTE | 2025-03-26 13:19 | PD.GYNPROG ---
Documentation for date of: 03/26/25 [employer]FT MECHANIC Subjective Subjective Interval history: No vaginal bleeding or abdominal or pelvic pain. Normal movement. No chest pain or palpitations. Subjective: patient reports feeling better and other (She reports good movement. Her left leg pain is improving. She has multiple questions about what is going to happen when she is discharged home.) Exam Vital Signs Temp Pulse Resp BP Pulse Ox O2 Del Method 96.7 F L 82 16 97/66 98 Room Air 03/26/25 11:57 03/26/25 11:57 03/26/25 11:57 03/26/25 11:57 03/26/25 11:57 03/26/25 11:57 Narrative Exam Patient is alert and oriented x 3 resting comfortably in bed. Her abdomen is soft , she has a palpable large left sided fibroid. She has less swelling and almost no erythema of her left lower extremity. Urinary Catheter Management Cath placed during this visit: no [employer]FT MECHANIC - PN: Obj Data Labs 03/26/25 06:45 03/26/25 06:45 Labs: Laboratory Results - last 24 hr 03/25/25 03/26/25 03/26/25 17:35 00:08 06:45 WBC 10.5 RBC 3.34 L Hgb 10.2 L D Hct 29.4 L MCV 88 MCH 30.5 MCHC 34.7 RDW Std Deviation 42.4 Plt Count 163 D Neut % (Auto) 81 H Lymph % (Auto) 12 Dane % (Auto) 6 Eos % (Auto) 0 Baso % (Auto) 0 Neut # (Auto) 8.4 H Lymph # (Auto) 1.2 Dane # (Auto) 0.6 Eos # (Auto) 0.0 Baso # (Auto) 0.0 Immature Gran # (Auto) 0.14 H Absolute Nucleated RBC 0.00 Immature Gran % 1 H Nucleated RBC % 0 PT 10.9 INR 1.0 APTT 45.6 H 59.4 H D 42.5 H D Sodium 137 Potassium 4.0 Chloride 104 Carbon Dioxide 24.6 Anion Gap 8 BUN 6 L Creatinine 0.4 L Estim Creat Clear Calc 245.2 eGFR > 60 BUN/Creatinine Ratio 15 Glucose 100 Calculated Osmolality 271 L Calcium 9.1 03/26/25 10:13 WBC RBC Hgb Hct MCV MCH MCHC RDW Std Deviation Plt Count Neut % (Auto) Lymph % (Auto) Dane % (Auto) Eos % (Auto) Baso % (Auto) Neut # (Auto) Lymph # (Auto) Dane # (Auto) Eos # (Auto) Baso # (Auto) Immature Gran # (Auto) Absolute Nucleated RBC Immature Gran % Nucleated RBC % PT INR APTT 45.9 H Sodium Potassium Chloride Carbon Dioxide Anion Gap BUN Creatinine Estim Creat Clear Calc eGFR BUN/Creatinine Ratio Glucose Calculated Osmolality Calcium [employer] MECH[employer]IC - A/P Assessment and plan (1) Deep vein thrombosis: Problem details: Extensive deep vein thrombosis of left common femoral, superficial femoral, popliteal, peroneal, and posterior tibial veins without involvement of the internal iliac vein. Internal medicine is following. The plan is to transition from IV heparin sometime today to a therapeutic dose of Lovenox and send the patient home on therapeutic doses of Lovenox on discharge. She will continue the Lovenox the remainder of her . The patient has an appointment with Dr. Perdomo, a maternal- medicine specialist in [place] on Friday. She will be transferring her care to Dr. perdomo for the remainder of her . I recommended she get screened for factor V Leiden and other genetic coagulopathies. The patient's mother also had a DVT. This will be worked up as an outpatient through hematology or her maternal- medicine specialist. She has a lot of questions about delivery. I recommended she deliver in [place] as they have more tertiary care services than we do here in [place]. She will most likely be delivered by and she will most likely be delivered early. I told the patient they will try to wait as long as they can to deliver her most likely by 36 to 37 weeks. Again, as I am most likely not going to be her delivering physician, I cannot give her an exact plan. I told the patient depending on where the fibroid is located, the surgeon who performs her may or may not remove the fibroid. If it is pedunculated it might be able to be removed at otherwise they will most likely keep it in place. I told the patient she is at risk for an early delivery, early premature rupture of membranes and extensive bleeding during a . She states she will be compliant with all her visits to her maternal- medicine specialist. She is concerned as her does not drive secondary to a seizure disorder. She does have a sister that lives close by. I recommended she arrange for her sister to take her to her appointments and to be available if an emergency arises. Status: Acute (2) Degeneration of uterine fibroid: Problem details: The fibroid is currently 16 x 15 x 15 cm. Her maternal- medicine specialist will follow the baby's growth and also the fibroids growth during . I told her fundal height measurements are not going to be accurate for her secondary to the large fibroid. I told her to expect some pain if the fibroid degenerates. She might have to be on oral narcotics on discharge secondary to pain. She does not want to start these unless she absolutely has to. Status: Acute Time Spent With Patient Time: Total time spent is greater than 50% in coordination of care (as documented) at patient's floor/unit and/or counseling patient: Time with patient: less than 15 minutes
[2025-03-26] MEDS: Heparin/D5w 25K 250 ML Ivpb 25,000 UNIT/250 ML BAG 23.727 UNIT IV (13:43)
--- NOTE | 2025-03-26 14:19 | ESPR_ITS ---
<Statement entered by Josue Moulton MD - 03/27/25 12:03> Patient started on p.o. Keflex as UA positive for UTI. Echo was negative for RV strain. Anticipating d/c within 24-48 hours. I discussed with and supervised the international logistics coordinator physician involved in the care of this patient. Patient assessment and plan was discussed with entire medicine team, including my attending. I agree with the assessment and plan as documented by international logistics coordinator doctor. Patient care was discussed with my attending physician Dr. Mike Moulton, PGY-2 Documentation for date of: 03/26/25 Subjective Subjective Interval history: Patient is seen and examined at bedside No acute overnight events. Denies any other complaints except for mild pain and swelling in the left lower extremity Vitals are stable. Labs showed mild anemia, Hb 10.2 Urine analysis showed turbid urine with 3+ bacteriuria and 9 WBC Started on cephalexin 500 Mg p.o. 4 times daily Will stop heparin at 9 PM and will start on enoxaparin 90 Mg twice daily Exam Vital Signs Temp Pulse Resp BP Pulse Ox O2 Del Method 96.7 F L 82 16 97/66 98 Room Air 03/26/25 11:57 03/26/25 11:57 03/26/25 11:57 03/26/25 11:57 03/26/25 11:57 03/26/25 11:57 Narrative Exam General: Awake. HEENT: Normocephalic, atraumatic, mucous membranes moist. Heart: Regular rate and rhythm, no murmurs. Lungs: Clear to auscultation with no wheezing or crackles. Abdomen: Soft, nontender, positive bowel sounds. ?No guarding or rebound tenderness. Uterus extending below xiphisternum Neurologic: Alert and oriented x3, no gross neurological deficit, and patient able to move all 4 extremities. Extremities: Noted swelling and tenderness in left lower extremity up to thigh Skin: No rash or ecchymoses. Objective Labs 03/27/25 05:26 03/27/25 05:26 Labs: Laboratory Results - last 24 hr 03/25/25 03/26/25 03/26/25 17:35 00:08 06:45 WBC 10.5 RBC 3.34 L Hgb 10.2 L D Hct 29.4 L MCV 88 MCH 30.5 MCHC 34.7 RDW Std Deviation 42.4 Plt Count 163 D Neut % (Auto) 81 H Lymph % (Auto) 12 [place] % (Auto) 6 Eos % (Auto) 0 Baso % (Auto) 0 Neut # (Auto) 8.4 H Lymph # (Auto) 1.2 [place] # (Auto) 0.6 Eos # (Auto) 0.0 Baso # (Auto) 0.0 Immature Gran # (Auto) 0.14 H Absolute Nucleated RBC 0.00 Immature Gran % 1 H Nucleated RBC % 0 PT 10.9 INR 1.0 APTT 45.6 H 59.4 H D 42.5 H D Sodium 137 Potassium 4.0 Chloride 104 Carbon Dioxide 24.6 Anion Gap 8 BUN 6 L Creatinine 0.4 L Estim Creat Clear Calc 245.2 eGFR > 60 BUN/Creatinine Ratio 15 Glucose 100 Calculated Osmolality 271 L Calcium 9.1 03/26/25 10:13 WBC RBC Hgb Hct MCV MCH MCHC RDW Std Deviation Plt Count Neut % (Auto) Lymph % (Auto) [place] % (Auto) Eos % (Auto) Baso % (Auto) Neut # (Auto) Lymph # (Auto) [place] # (Auto) Eos # (Auto) Baso # (Auto) Immature Gran # (Auto) Absolute Nucleated RBC Immature Gran % Nucleated RBC % PT INR APTT 45.9 H Sodium Potassium Chloride Carbon Dioxide Anion Gap BUN Creatinine Estim Creat Clear Calc eGFR BUN/Creatinine Ratio Glucose Calculated Osmolality Calcium Quality Measures Quality Measures VTE prophylaxis and VTE therapy Assessment & Plan Assessment Current Active Medications: Generic Name Dose Route Start Last Admin Trade Name Freq PRN Reason Stop Dose Admin Hydrocodone Bitart/Acetaminophen 1 tab 03/25/25 16:38 Hydrocodone/Apap 5/325 Tablet PO 03/30/25 16:37 Q4HR PRN Pain Scale 6-10 Albuterol/Ipratropium 3 ml 03/24/25 15:46 03/26/25 08:25 Albuterol/Ipratropium (Duoneb) Rt Corry 3 Ml Nebu INH 04/23/25 15:45 3 ml Q2HR PRN Administration SHORTNESS OF BREATH OR WHEEZE Cephalexin HCl 500 mg 03/26/25 08:30 03/26/25 12:40 Cephalexin 250 Mg Capsule PO 04/02/25 08:29 500 mg QID SOFY Administration Lactated Ringer's 1,000 mls @ 125 mls/hr 03/24/25 07:36 03/26/25 11:33 Lactated Ringers IV 04/23/25 07:35 125 mls/hr .Q8H SOFY Administration Heparin Sodium/Dextrose 25,000 unit in 250 mls @ 16.426 mls/hr 03/26/25 13:15 03/26/25 13:43 Heparin In D5w Ivpb IV 04/09/25 13:14 26 units/kg/hr .[id number] SOFY 23.727 mls/hr Administration Protocol 18 UNITS/KG/HR Ondansetron HCl 4 mg 03/24/25 06:19 03/24/25 12:59 Ondansetron Inj 2 Mg/Ml Inj 2 Ml IVP 04/23/25 06:18 4 mg Q6HR PRN Administration NAUSEA OR VOMITING Protocol Multivit/Folic Acid/Iron 1 tab 03/25/25 12:00 03/26/25 08:07 Vitamin/Fe Fum/Fa Tablet PO 04/24/25 11:59 1 tab QDAY SOFY Administration Plan A 35-year-old female G1, P0 at 24 weeks of gestation, with no significant past medical history except for fibroid on her left side of the uterus following Dr. Lu presented to the hospital with chief complaints of pain and swelling in left lower extremity since 2 days and diagnosed to have left lower extremity DVT # Left lower extremity DVT # Risk factors: - Presented with to the hospital with pain and swelling in left lower extremity since 2 days - Patient denies shortness of breath, chest pain, smoking - Vitals are stable except for mild tachycardia with heart rate 102. - On physical examination, noted swelling and tenderness in the left lower extremity - Venous Doppler showed extensive acute deep vein thrombus involving common femoral superficial femoral, popliteal, peroneal, posterior tibial veins and superficial greater saphenous vein. - Ultrasound abdomen is ordered to look for extent of DVT - No thrombus in the IVC Plan - Patient was started on heparin drip,will continue for total duration of 48hrs - Will start enoxaparin 90mg BID on 03/26/2025 at 9:00 PM till delivery - Will watch for bleeding manifestations - Patient requires coagulable workup, cannot be done as patient is currently on heparin and in the view of acute DVT - Recommend to follow-up with repeat Doppler of lower extremity in 3 months # Asymptomatic bacteriuria - Urine analysis showed turbid urine with 3+ bacteria, 9 WBC - Started on cephalexin 500 Mg p.o. 4 times daily # Asthma, well-controlled - Patient is using albuterol inhaler as needed continue - Started on nebulizations as needed Patient plan of care was discussed with the attending physician, Dr. Mckeon and senior resident Dr. Saige Patten, PGY1 Attending Provider Attestation/Addendum I, Michelle Mckeon, , attest that I was physically present for the roa portions of the service and evaluated the patient with the resident and I reviewed and discussed the case with the resident and agree with the resident's findings and plans of care as documented above Patient seen and evaluated this AM. No acute events overnight. Patient still has pain in her leg. She states that her abdominal pain has resolved. Patient had a rapid response yesterday due to abdominal pain. however, case discussed with OBGYN after patient had NST which was stable. Pain suspected to be 2/2 round ligament pain versus degradation of fibroid. Patient's fibroid is palpable in LUQ. Patient has no fevers or chills. No vaginal bleeding. Started on keflex for UTI. No worsening tightness or pain in left lower extremity. Patient reassured regarding improvement. Will switch to lovenox this evening.
[2025-03-26 18:22] LABS: Partial Thromboplastin Time 63.6 Seconds (22.0-36.0)
[2025-03-26] MEDS: ENOXAPARIN SOD INJ 100 MG/ML SYRINGE SC (21:03)
[2025-03-27] VITALS (8 sets, daily range): BP systolic 104–121; BP diastolic 63–76; PULSE 61–83; RESP 14–22; TEMP 36.1–36.6; O2SAT 97–100; BMI 31.5
[2025-03-27] MEDS: RINGERS LACTATED 1000 ML 1,000 ML 125 ML IV (04:06)
[2025-03-27] MEDS: cephALEXin 250 MG CAPSULE 500 MG PO ×4 (05:19→20:33)
[2025-03-27 06:30] LABS: Partial Thromboplastin Time 27.4 Seconds (22.0-36.0); Prothrombin Time 10.9 Seconds (9.0-12.2)
[2025-03-27] MEDS: ALBUTEROL/IPRATROPIUM (Duoneb) RT SOL 3 ML NEBU INH (07:34)
--- NOTE | 2025-03-27 08:14 | XR_ITS ---
Examination: Venous duplex lower extremity sonogram, bilateral. Date and time of exam: March 27, at 2025, 0826 hrs. Indications: History extensive acute deep vein thrombus left lower extremity on Doppler study March 24, 2025, worsening swelling in the leg and pain Technique: Multiple sonographic images of the deep venous system have been obtained. B-mode/2-D grayscale imaging of vascular structures and Doppler spectral analysis (waveforms) and color performed Both legs are examined. Findings: Right deep venous system unremarkable Extensive nonocclusive DVT involving the left common femoral superficial femoral popliteal perineal veins as well as greater saphenous vein Impression: There remains extensive nonocclusive thrombus in the left lower extremity deep venous system
[2025-03-27 08:19] LABS: Alanine Aminotransferase 16 U/L (10-49); Albumin, Serum 3.3 gm/dL (3.5-5.0); Albumin/Globulin Ratio 1.4 (1.2-2.2); Alkaline Phosphatase 58 U/L (46-116); Anion Gap 9 (7-16); BUN/Creatinine Ratio 16 Ratio (12-20); Bilirubin,Total 0.3 mg/dL (0.3-1.2); Blood Urea Nitrogen 8 mg/dL (9-23); Calcium (Corrected) 9.6 mg/dL (8.5-10.1); Carbon Dioxide 26.1 mMol/L (20.0-31.0); Chloride 106 mMol/L (98-107); Creatinine (Component) 0.5 mg/dL (0.6-1.3); Estimated Creatinine Clearance 196.3 mL/min (>60); Globulin 2.3 gm/dL (2.3-3.5); Glucose 78 mg/dL (74-106); Magnesium 1.6 mg/dL (1.6-2.6); Osmolality,Calculated 278 (275-295); Phosphorous 2.9 mg/dL (2.4-5.1); Sodium 141 mMol/L (136-145); Total Protein 5.6 gm/dL (5.7-8.2); eGFR > 60 See Note
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
[2025-03-27 08:25] LABS: Basophils % (Auto) 0 % (0-2.5); Eosinophils % (Auto) 0 % (0-10); Hematocrit 29.3 % (36.0-46.0); Hemoglobin 10.1 g/dL (12.0-16.0); Immature Granulocytes % (Auto) 2 % (0-0); Immature Granulocytes Auto 0.12 Thou/mm3 (0.00-0.00); Lymphocytes # (Auto) 1.5 Thou/mm3 (1.0-4.8); Lymphocytes % (Auto) 19 % (10-50); Mean Corpuscular HGB Conc 34.5 g/dl (31.0-37.0); Mean Corpuscular Hemoglobin 30.7 pg (25.0-35.0); Mean Corpuscular Volume 89 fL (80-100); Monocytes # (Auto) 0.7 Thou/mm3 (0.0-0.8); Monocytes % (Auto) 9 % (0-12); Neutrophils # (Auto) 5.5 Thou/mm3 (1.8-7.7); Neutrophils % (Auto) 70 % (37-80); Nucleated Red Blood Cell # 0.02 Thou/mm3 (0.00-0.00); Nucleated Red Blood Cell % 0 /100 WBC (0); Platelet Count 159 Thou/mm3 (140-440); RDW Standard Deviation 44.4 fL (36.4-46.3); Red Blood Count 3.29 Miln/mm3 (4.00-5.20); White Blood Count 7.8 Thou/mm3 (3.6-11.0)
[2025-03-27] MEDS: ENOXAPARIN SOD INJ 100 MG/ML SYRINGE SC ×2 (09:16→20:33)
[2025-03-27] MEDS: PRENATAL VITAMIN/FE FUM/FA TABLET 1 TAB PO (09:17)
[2025-03-27] MEDS: ACETAMINOPHEN 325 MG TABLET 650 MG PO ×2 (10:45→20:33)
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
--- NOTE | 2025-03-27 15:10 | PC.SS ---
SS received referral for pt to be provided with services to assist her getting to appointments in [place]; SS spoke with pt who stated she has an assigned technical service representative with [facility] who pt will reach out to for assistance with rides and help with . SS also encouraged pt to reach out to [facility] for benefits surrounding assistance with ; pt stated she will do this. SS provided addtional paperwork with [facility] resources and phone numbers to reach out.
[2025-03-28] VITALS: BP 96/66; PULSE 57; PULSE 73; RESP 14; TEMP 36.8; O2SAT 97
[2025-03-28 04:00] VITALS: BP 114/72; PULSE 63; PULSE 81; RESP 14; TEMP 36.5; O2SAT 99
[2025-03-28] MEDS: cephALEXin 250 MG CAPSULE 500 MG PO ×2 (05:15→12:49)
[2025-03-28 05:58] VITALS: BMI 31.8
[2025-03-28 05:59] LABS: Basophils % (Auto) 0 % (0-2.5); Eosinophils # (Auto) 0.1 Thou/mm3 (0.0-0.5); Eosinophils % (Auto) 1 % (0-10); Hematocrit 28.4 % (36.0-46.0); Hemoglobin 9.8 g/dL (12.0-16.0); Immature Granulocytes % (Auto) 2 % (0-0); Immature Granulocytes Auto 0.16 Thou/mm3 (0.00-0.00); Lymphocytes # (Auto) 1.7 Thou/mm3 (1.0-4.8); Lymphocytes % (Auto) 19 % (10-50); Mean Corpuscular HGB Conc 34.5 g/dl (31.0-37.0); Mean Corpuscular Hemoglobin 30.4 pg (25.0-35.0); Mean Corpuscular Volume 88 fL (80-100); Monocytes # (Auto) 0.8 Thou/mm3 (0.0-0.8); Monocytes % (Auto) 9 % (0-12); Neutrophils % (Auto) 69 % (37-80); Nucleated Red Blood Cell # 0.03 Thou/mm3 (0.00-0.00); Nucleated Red Blood Cell % 0 /100 WBC (0); Platelet Count 164 Thou/mm3 (140-440); RDW Standard Deviation 43.2 fL (36.4-46.3); Red Blood Count 3.22 Miln/mm3 (4.00-5.20); White Blood Count 8.8 Thou/mm3 (3.6-11.0)
[2025-03-28 06:17] LABS: Partial Thromboplastin Time 27.4 Seconds (22.0-36.0)
[2025-03-28 06:48] LABS: Alanine Aminotransferase 34 U/L (10-49); Albumin, Serum 3.3 gm/dL (3.5-5.0); Albumin/Globulin Ratio 1.6 (1.2-2.2); Alkaline Phosphatase 61 U/L (46-116); Anion Gap 10 (7-16); BUN/Creatinine Ratio 18 Ratio (12-20); Bilirubin,Total 0.3 mg/dL (0.3-1.2); Blood Urea Nitrogen 7 mg/dL (9-23); Calcium 9.3 mg/dL (8.3-10.6); Calcium (Corrected) 9.9 mg/dL (8.5-10.1); Carbon Dioxide 24.7 mMol/L (20.0-31.0); Chloride 102 mMol/L (98-107); Creatinine (Component) 0.4 mg/dL (0.6-1.3); Estimated Creatinine Clearance 246.9 mL/min (>60); Globulin 2.1 gm/dL (2.3-3.5); Glucose 92 mg/dL (74-106); Magnesium 1.5 mg/dL (1.6-2.6); Osmolality,Calculated 271 (275-295); Phosphorous 3.4 mg/dL (2.4-5.1); Potassium 3.6 mMol/L (3.4-5.1); Sodium 137 mMol/L (136-145); Total Protein 5.4 gm/dL (5.7-8.2); eGFR > 60 See Note
[2025-03-28 07:38] VITALS: PULSE 77; RESP 18; O2SAT 97
[2025-03-28 08:00] VITALS: BP 108/68; PULSE 85; PULSE 88; RESP 16; TEMP 36.4; O2SAT 96
[2025-03-28 08:57] VITALS: BMI 32.0
--- NOTE | 2025-03-28 09:12 | ESPR_ITS ---
<Statement entered by Josue Moulton MD - 03/28/25 13:32> No significant overnight events. Patient was to get MRI of abdomen/pelvis to get a better picture of fibroids but per OBGYN patient will be transferred to [facility] OBGYN unit as she will need higher level of care. Patient currently pending transfer. We recommend continuing Lovenox and Keflex. I discussed with and supervised the software engineer intern physician involved in the care of this patient. Patient assessment and plan was discussed with entire medicine team, including my attending. I agree with the assessment and plan as documented by software engineer intern doctor. Patient care was discussed with my attending physician Dr. Mike Moulton, PGY-2 Documentation for date of: 03/28/25 Subjective Subjective Interval history: Patient seen and examined by the bedside. Reports improvement in her leg swelling. No discoloration, tightness in the left lower extremity. Denies shortness of breath, dizziness, abdominal pain. Pending abdominal/pelvis MRI. rehabilitation services director is working with patient. Will continue lovenox 100 mg BID for the remainder of the . Continues to be Cephalexin (5 days course 03/26- 03/30) Pending transfer to [facility] for the high risk management. From the medical standpoint, patient is stable. Internal medicine team will sign off for now. Exam Vital Signs Temp Pulse Resp BP Pulse Ox O2 Del Method 97.5 F 88 16 108/68 96 Room Air 03/28/25 08:00 03/28/25 08:00 03/28/25 08:00 03/28/25 08:00 03/28/25 08:00 03/28/25 08:00 Narrative Exam General: Awake, conversational. HEENT: Normocephalic, atraumatic, mucous membranes moist. Heart: Regular rate and rhythm, no murmurs. Lungs: Clear to auscultation with no wheezing or crackles. Abdomen: Soft, nontender, positive bowel sounds. ?No guarding or rebound tenderness. Uterus extending below xiphisternum Neurologic: Alert and oriented x3, no gross neurological deficit, and patient able to move all 4 extremities. Extremities: Swelling and tenderness in left lower extremity up to thigh. Skin: No rash or ecchymoses. Objective Labs 03/28/25 04:40 03/28/25 04:40 Labs: Laboratory Results - last 24 hr 03/28/25 04:40 WBC 8.8 RBC 3.22 L Hgb 9.8 L Hct 28.4 L MCV 88 MCH 30.4 MCHC 34.5 RDW Std Deviation 43.2 Plt Count 164 Neut % (Auto) 69 Lymph % (Auto) 19 [place] % (Auto) 9 Eos % (Auto) 1 Baso % (Auto) 0 Neut # (Auto) 6.0 Lymph # (Auto) 1.7 [place] # (Auto) 0.8 Eos # (Auto) 0.1 Baso # (Auto) 0.0 Immature Gran # (Auto) 0.16 H Absolute Nucleated RBC 0.03 H Immature Gran % 2 H Nucleated RBC % 0 APTT 27.4 Sodium 137 Potassium 3.6 Chloride 102 Carbon Dioxide 24.7 Anion Gap 10 BUN 7 L Creatinine 0.4 L Estim Creat Clear Calc 246.9 eGFR > 60 BUN/Creatinine Ratio 18 Glucose 92 Calculated Osmolality 271 L Calcium 9.3 Corrected Calcium 9.9 Phosphorus 3.4 Magnesium 1.5 L Total Bilirubin 0.3 ALT 34 Alkaline Phosphatase 61 Total Protein 5.4 L Albumin 3.3 L Globulin 2.1 L Albumin/Globulin Ratio 1.6 Quality Measures Quality Measures VTE prophylaxis and VTE therapy Assessment & Plan Assessment Current Active Medications: Generic Name Dose Route Start Last Admin Trade Name Freq PRN Reason Stop Dose Admin Acetaminophen 650 mg 03/27/25 08:12 03/27/25 20:33 Acetaminophen 325 Mg Tablet PO 04/26/25 08:11 650 mg Q6HR PRN Administration Fever >100.3 or pain Albuterol/Ipratropium 3 ml 03/24/25 15:46 03/27/25 07:34 Albuterol/Ipratropium (Duoneb) Rt Corry 3 Ml Nebu INH 04/23/25 15:45 3 ml Q2HR PRN Administration SHORTNESS OF BREATH OR WHEEZE Cephalexin HCl 500 mg 03/26/25 08:30 03/28/25 05:15 Cephalexin 250 Mg Capsule PO 04/02/25 08:29 500 mg QID SOFY Administration Enoxaparin Sodium 100 mg 03/26/25 21:00 03/27/25 20:33 Enoxaparin Sod Inj 100 Mg/Ml Syringe SC 04/09/25 20:59 100 mg BID SOFY Administration Magnesium Sulfate 4 gm in 50 mls @ 12.5 mls/hr 03/28/25 07:16 Magnesium Sulfate Ivpb IV 03/28/25 11:15 X1 ONE Ondansetron HCl 4 mg 03/24/25 06:19 03/24/25 12:59 Ondansetron Inj 2 Mg/Ml Inj 2 Ml IVP 04/23/25 06:18 4 mg Q6HR PRN Administration NAUSEA OR VOMITING Protocol Multivit/Folic Acid/Iron 1 tab 03/25/25 12:00 03/27/25 09:17 Vitamin/Fe Fum/Fa Tablet PO 04/24/25 11:59 1 tab QDAY SOFY Administration Plan A 35-year-old female G1, P0 at 24 weeks of gestation, with no significant past medical history except for fibroid on her left side of the uterus following Dr. Lu presented to the hospital with chief complaints of pain and swelling in left lower extremity since 2 days and diagnosed to have left lower extremity DVT #Left lower extremity DVT #Risk factors: - Presented with to the hospital with pain and swelling in left lower extremity since 2 days - Patient denies shortness of breath, chest pain, smoking - Vitals are stable except for mild tachycardia with heart rate 102. - On physical examination, noted swelling and tenderness in the left lower extremity - Venous Doppler showed extensive acute deep vein thrombus involving common femoral superficial femoral, popliteal, peroneal, posterior tibial veins and superficial greater saphenous vein. - Ultrasound abdomen is ordered to look for extent of DVT - No thrombus in the IVC - heparin drip was discontinued 03/26/25 Plan - Enoxaparin 100mg BID on 03/26/2025 at 9:00 PM till delivery - Will watch for bleeding manifestations - Patient requires coagulable workup for thrombophilia after discharge - Recommend to follow-up with repeat Doppler of lower extremity in 3 months #Asymptomatic bacteriuria - Urine analysis showed turbid urine with 3+ bacteria, 9 WBC - Cephalexin 500 Mg p.o. 4 times daily 03/26-current (5 days course will finish on 03/30) #Asthma, well-controlled - Patient is using albuterol inhaler as needed continue - Started on nebulizations as needed #Uterine fibroids Stable. Plan: - Work up and management as per OBGYN recommendations Health maintenance: FEN: regular DVT prophylaxis and treatment: lovenox 100 mg BID GI prophylaxis: not indicated Dispo: telemetry CODE STATUS: Full code Plan of care discussed with attending Dr. Mckeon and PGY-2 Dr. Moulton. Katlyn Dave MD, PGY 1. Attending Provider Attestation/Addendum Michelle Martínez, , attest that I was physically present for the roa portions of the service and evaluated the patient with the resident and I reviewed and discussed the case with the resident and agree with the resident's findings and plans of care as documented above Patient seen and eval this a.m. Patient is stable for transfer to [facility] for higher level of care due to concern for delivery with the presence of large fibroid. MRI was canceled as further workup can be done at [facility]. Continue with full dose Lovenox at this time. Left lower extremity appears unchanged. It does not appear more swollen or tight. Patient states edema did improve with ambulation. Pain has been moderate with walking. Patient needs to keep legs elevated when resting.
[2025-03-28] MEDS: ENOXAPARIN SOD INJ 100 MG/ML SYRINGE SC (09:17)
[2025-03-28] MEDS: Magnesium Sulfate 4 GM Ivpb 4 GM/50 ML BAG IV (09:18)
[2025-03-28] MEDS: POTASSIUM CHLORIDE 20 mEq TABCR 40 MEQ PO (09:18)
[2025-03-28] MEDS: ACETAMINOPHEN 325 MG TABLET 650 MG PO (09:20)
[2025-03-28] MEDS: PRENATAL VITAMIN/FE FUM/FA TABLET 1 TAB PO (09:36)
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
--- NOTE | 2025-03-28 10:29 | PC.CC ---
Addendum entered by Deny Malhotra RN 03/28/25 12:04: 1200: received call from [facility] with tranportation, merchandise pickup/receiving associate time is now 1330pm. Spoke to Megha MACEDO and informed her of updated merchandise pickup/receiving associate time. Addendum entered by Deny Malhotra RN 03/28/25 11:28: 1128: called [facility] and informed her up scheduled merchandise pickup/receiving associate time of 1230pm Addendum entered by Deny Malhotra RN 03/28/25 11:25: 1122: transport set up for 1230 pm merchandise pickup/receiving associate today, spoke to [facility]. Informed RN Jack of merchandise pickup/receiving associate time. 1104: Spoke to Dr. Mckeon regarding the mag IV, she stated to stop the mag IV. Bedside nurse Jack was informed. Addendum entered by Deny Malhotra RN 03/28/25 11:19: 1103: spoke to Dr. Lu, he confirmed this is a regular ground transfer. Addendum entered by Deny Malhotra RN 03/28/25 11:18: 1057: transfer packet w/ 2 CDS delivered to bedside nurse Jack. Report to L&D nurse @ [phone] or Charge nurse [phone]. Original Note: 1030Transfer packet w/imaging faxed to [facility]. 2 CDs created. Bedside nurse and Dr. Mckeon made aware 1006Received call back from [facility], she stated pt is accepted by Dr. Stephens and has a bed available. 1005: Called Dr. Lu and he confirmed that he spoke to Dr. Stephens at [facility] and was informed that pt will be accepted. Informed him to please initiate the transfer order. he stated he would. 1000: received call from [facility] regarding a pt transfer initiated by Dr. Lu. She requested the documents be faxed over.
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
--- NOTE | 2025-03-28 11:37 | PC.NURSE ---
Report given to REMINGTON Chao at [facility] for transfer. Notified of magnesium drip will be stopped for transfer. Notified follow up for MRI. Notified positive DVT left leg.
[2025-03-28 12:00] VITALS: BP 137/82; PULSE 72; PULSE 74; RESP 16; TEMP 36.1; O2SAT 97
[2025-03-28 13:10] VITALS: BP 122/77; PULSE 99; RESP 17; TEMP 36.4; O2SAT 100
--- NOTE | 2025-03-28 13:20 | PC.NURSE ---
Ambulance personnel arrived to pickup patient, report given to field artillery operations specialist. Notified Zhanna MACEDO of departure and medications. 48 hr med list printed and put in packet. Transfer packet given to ambulance personnel.
--- NOTE | 2025-03-28 14:24 | PC.PT ---
Will Cancel PT evaluation, Patient is being transferred to [facility].
--- NOTE | 2025-04-05 16:01 | PD.ADDPROG ---
Addendum Progress Note Addendum Date of report being addended: 04/05/25 Narrative: Pt was admitted through OBT by Dr Ward for a large DVT and an enlarged fibroid uterus.
== END 2025-03-28 13:26 | disposition short-term general hospital (02) | DRG 831 ==
LOC: S4SX 09:39 → S2NX 10:30
PROVIDERS: Internal Medicine; Obstetrics & Gynecology; Student in an Organized Health Care Education/Training Program; Admitting Provider Obstetrics & Gynecology; Visit Provider Specialist
DX: O47.02 False labor before 37 completed weeks of gestation, second trimester (principal); O22.32 Deep phlebothrombosis in pregnancy, second trimester; I82.412 Acute embolism and thrombosis of left femoral vein; O23.42 Unspecified infection of urinary tract in pregnancy, second trimester; O12.12 Gestational proteinuria, second trimester; N13.2 Hydronephrosis with renal and ureteral calculous obstruction; O21.2 Late vomiting of pregnancy; Z3A.24 24 weeks gestation of pregnancy; O99.891 Other specified diseases and conditions complicating pregnancy; O34.12 Maternal care for benign tumor of corpus uteri, second trimester; D25.1 Intramural leiomyoma of uterus; O99.512 Diseases of the respiratory system complicating pregnancy, second trimester; J45.909 Unspecified asthma, uncomplicated; O99.012 Anemia complicating pregnancy, second trimester; Z91.85 Personal history of military service; Z91.410 Personal history of adult physical and sexual abuse; Z79.51 Long term (current) use of inhaled steroids
CPT/HCPCS: 36415; 59025; 71045; 76705; 76770; 76805; 80048; 80053; 81001; 82150; 82550; 83690; 83735; 83880; 84100; 84484; 85025; 85610; 85730; 86038; 86146; 86147; 86148; 87086; 93306; 93970; 93971; 94640; 94664; A9270; J0131; J0702; J1644; J1650; J2405; J3475; J7120

== ENCOUNTER 2025-04-03 14:35 | Emergency (ER) | payer OTHER, SELFPAY ==
[2025-04-03 14:36] VITALS: BP 117/71; PULSE 91; RESP 20; TEMP 36.9; O2SAT 96; BMI 30.2
--- NOTE | 2025-04-03 14:43 | PD.EDLOWEX ---
Lower Extremity Injury RME/HPI General Chief Complaint: Extremity Injury, Lower Stated Complaint: L) LEG DVT; D/C'D FROM HOSP FOR SAME THING; WORSE Time Seen by Provider: 04/03/25 14:39 Source: patient Arrival date/time: 04/03/25 14:35 Mode of arrival: ambulatory Limitations: no limitations RME / HPI RME / HPI Narrative: 25-week female is here today with a left lower leg DVT. She states she was diagnosed with this just over a week ago. She is currently taking Lovenox. She is at increased swelling to her leg and pain. She denies any chest pain, shortness of breath, palpitations. She has no abdominal pain, nausea, vomiting. She has no vaginal bleeding or pelvic pain. She has had no vaginal discharge. She has no urinary complaints she denies any fevers or chills. She has no other acute complaints or concerns. Related Data Home Medications ?Medication ?Instructions ?Recorded ?Confirmed vitamin no.45-iron-FA 28 1 tab PO DAILY 03/24/25 03/24/25 mg iron-1 mg chewable tablet Previous Rx's ?Medication ?Instructions ?Recorded albuterol sulfate 90 mcg/actuation 2 puff inhalation Q6H PRN wheezing 02/16/25 aerosol inhaler 5 days #8.5 grams Allergies Allergy/AdvReac Type Severity Reaction Status Date / Time No Known Allergies Allergy Verified 04/03/25 14:39 Review of Systems Review of Systems Systems Reviewed: All systems reviewed, normal except as documented ED Exam General Limitations: Present no limitations General appearance: Present alert and in no apparent distress Head Head exam: Present atraumatic Eye Eye exam: Present normal appearance, PERRL and EOMI ENT ENT exam: Present normal exam, normal oropharynx and mucous membranes moist Neck Neck exam: Present normal inspection, full ROM and trachea midline Chest Chest inspection: Present normal inspection and symmetric chest wall rise Respiratory Respiratory exam: Present normal lung sounds bilaterally Cardiovascular Cardiovascular exam: Present regular rate, normal rhythm, normal heart sounds and other (She has nonpitting, left lower leg edema. +2 pedal pulses.) Abdominal Exam Abdominal exam: Present soft and normal bowel sounds Extremities Exam Extremities exam: Present normal inspection and full ROM Back Exam Back exam: Present normal inspection and full ROM Neurological Exam Neurological exam: Present alert, oriented X3 and CN II-XII intact Psychiatric Psychiatric exam: Present normal affect and normal mood Skin Skin exam: Present warm, dry, intact and normal color Course Quality Measures none Orders Category Date Time Status CBC Stat Lab 04/03/25 14:51 Completed CMP [Comprehensive Metabolic Panel] Stat Lab 04/03/25 14:51 Completed Acetaminophen Tab [Tylenol ES Tab] Med 04/03/25 14:47 Discontinued 1,000 mg PO X1 ONE Vital Signs Vital signs: Vital Signs Temperature 98.4 F 04/03/25 14:36 Pulse Rate 91 04/03/25 14:36 Respiratory Rate 20 04/03/25 14:36 Blood Pressure 117/71 04/03/25 14:36 Pulse Oximetry (%) 96 04/03/25 14:36 Oxygen Delivery Method Room Air 04/03/25 14:36 Extremity Injury, Lower MDM Narrative MDM Narrative:: 34-year-old female is here today with a known left leg DVT. She had transient bleeding in her gums this morning that self resolved. She has no bruising. She has no active bleeding anywhere else. Denies any vaginal discharge or bleeding. She has no abdominal pain, nausea, vomiting. She is having normal stools. She has no urinary complaints. She denies any fevers or chills. She is currently taking Lovenox. Her CBC and CMP are unremarkable. She has no evidence of thrombocytopenia. I do believe she be discharged at this time. She will use Tylenol for comfort. We discussed return precautions in great detail. She will use return as needed for any evidence of bleeding, significant bruising, or any abdominal or urinary complaints. We also discussed the need to return for any shortness of breath, palpitations, chest pain, or fevers. Patient data External records reviewed:: [facility] previous records Clinical information provided by:: patient Social determinants that could affect healthcare access:: none Patient has the following chronic illnesses:: n/a How is presenting disease/condition affected by chronic disease/condition?: no chronic disease Evaluation data The following diagnostics were reviewed and interpreted by me:: lab results Lab and/or radiology exams considered but not ordered:: CTA chest, D-dimer Interpretation Summary: No leukocytosis, significant anemia, or thrombocytopenia Medications / Prescriptions Medications or Prescriptions considered but not ordered:: n/a Medication administrations:: Medication Administration History Discontinued Medications Acetaminophen (Acetaminophen 500 Mg Tablet) 1,000 mg PO X1 ONE Stop: 04/03/25 14:48 Last Admin: 04/03/25 14:55 Dose: 1,000 mg Documented By: EF See above Consultations Consultation(s) initiated? (list below): No Diagnosis Extremity Injury, Lower Differential Diagnosis: other (Anemia, thrombocytopenia, hemorrhage PE) Most likely diagnosis given after review of the tests above:: Left leg DVT Admission Indicated Admission indicated?: not indicated Admission Request Was there a request for admission?: No Disposition Plan Disposition Plan: Discharge Discharge Attestation Discharge Attestation: The patient and all family members were given an opportunity to ask questions and understood the discharge instructions. Discharge instructions specifically effects, indications for sooner follow up or return to the emergency department, and the expected course of current diagnosis. Patient condition: Stable Discharge Plan Plan Patient Disposition: HOME (Self Care) Patient condition on transfer: Stable Prescriptions/Referrals Prescriptions/Med Rec: No Action vitamin #45-iron-FA 28 mg iron- 1 mg tablet,chewable 1 tab PO DAILY albuterol sulfate 90 mcg/actuation HFA aerosol inhaler 2 puff inhalation Q6H PRN (Reason: wheezing) 5 Days Qty: 8.5 6RF Rx Instructions: administer with spacer Referrals: No Primary/Family,Physician [Primary Care Provider] - In 1 week Problem List Clinical Impression: Acute deep vein thrombosis (DVT) of left lower extremity Patient/Caregiver Discharge Instructions Education Materials: DVT Dc Additional Instructions: Continue taking Lovenox. Use Tylenol for comfort. Return to the emergency room for any chest pain, shortness of breath, fever, or any concerns regarding bleeding or bruising. Print Language: Uzbek Stand Alone Forms: [facility] Award Info., Patient Portal Info Letter
[2025-04-03] MEDS: ACETAMINOPHEN 500 MG TABLET 1000 MG PO (14:55)
[2025-04-03 14:58] LABS: Basophils % (Auto) 0 % (0-2.5); Eosinophils # (Auto) 0.2 Thou/mm3 (0.0-0.5); Eosinophils % (Auto) 2 % (0-10); Hematocrit 32.7 % (36.0-46.0); Hemoglobin 11.1 g/dL (12.0-16.0); Immature Granulocytes % (Auto) 1 % (0-0); Immature Granulocytes Auto 0.11 Thou/mm3 (0.00-0.00); Lymphocytes # (Auto) 1.9 Thou/mm3 (1.0-4.8); Lymphocytes % (Auto) 20 % (10-50); Mean Corpuscular HGB Conc 33.9 g/dl (31.0-37.0); Mean Corpuscular Hemoglobin 30.3 pg (25.0-35.0); Mean Corpuscular Volume 89 fL (80-100); Monocytes # (Auto) 0.6 Thou/mm3 (0.0-0.8); Monocytes % (Auto) 7 % (0-12); Neutrophils # (Auto) 6.5 Thou/mm3 (1.8-7.7); Neutrophils % (Auto) 70 % (37-80); Nucleated Red Blood Cell % 0 /100 WBC (0); Platelet Count 243 Thou/mm3 (140-440); RDW Standard Deviation 43.8 fL (36.4-46.3); Red Blood Count 3.66 Miln/mm3 (4.00-5.20); White Blood Count 9.3 Thou/mm3 (3.6-11.0)
[2025-04-03 15:16] LABS: Alanine Aminotransferase 18 U/L (10-49); Albumin, Serum 3.7 gm/dL (3.5-5.0); Albumin/Globulin Ratio 1.4 (1.2-2.2); Alkaline Phosphatase 61 U/L (46-116); Anion Gap 9 (7-16); Aspartate Amino Transferase 14 U/L (0-34); BUN/Creatinine Ratio 12 Ratio (12-20); Bilirubin,Total 0.3 mg/dL (0.3-1.2); Blood Urea Nitrogen 7 mg/dL (9-23); Calcium 9.1 mg/dL (8.3-10.6); Calcium (Corrected) 9.3 mg/dL (8.5-10.1); Carbon Dioxide 23.7 mMol/L (20.0-31.0); Chloride 105 mMol/L (98-107); Creatinine (Component) 0.6 mg/dL (0.6-1.3); Estimated Creatinine Clearance 160.4 mL/min (>60); Globulin 2.7 gm/dL (2.3-3.5); Glucose 88 mg/dL (74-106); Osmolality,Calculated 272 (275-295); Sodium 138 mMol/L (136-145); Total Protein 6.4 gm/dL (5.7-8.2); eGFR > 60 See Note
== END 2025-04-03 15:37 | disposition home or self-care (01) ==
PROVIDERS: Physician Assistant Medical; Emergency Provider Family Medicine
DX: O22.32 Deep phlebothrombosis in pregnancy, second trimester (principal); I82.402 Acute embolism and thrombosis of unspecified deep veins of left lower extremity; Z3A.25 25 weeks gestation of pregnancy
CPT/HCPCS: 36415; 80053; 85025; 99283; A9270

== ENCOUNTER 2025-04-13 13:11 | Observation (INO) | payer OTHER, SELFPAY ==
[2025-04-13] VITALS (13 sets, daily range): BP systolic 113; BP diastolic 62; PULSE 86–105; RESP 20–97; TEMP 36.8; O2SAT 96–98; BMI 31.0
--- NOTE | 2025-04-13 13:39 | PD.LDPN ---
Documentation for date of: 04/13/25 OB Labor Progress Note Assessment and Plan Comments: Triage Note Kym is a 34yo G1 with SIUP at approx 26wk presenting to L&D for lack of movement this morning and for cramping. She notes no ctx pattern, no lof, no vaginal bleeding. Current : This is complicated by lower extremity DVT being treated with lovenox and large uterine fibroid, she has had regular OB care with her OBGYN ROS negative other than what was described above. Vitals wnl, afebrile General: well developed, well nourished, no acute distress, conversant Cardiac: normal heart rate Lungs: breathing without distress Abdomen: soft, gravid, non-tender, no rebound or guarding NST: reassuring for gestational age with 10x10 accels, no decels, mod cj [place]: no ctx pattern Bedside ultrasound performed by Dr. Yoder: SIUP with transverse presentation (head on maternal right), +FCA, +FM, posterior placenta, CHARLIE 15cm Assessment: Kym is a 34yo G1 with SIUP at approx 26wk with decreased movement and cramping. Vitals wnl, benign exam. Reassuring status based on NST/CHARLIE (modified BPP). No ctx pattern. Plan: -Provided reassurance regarding findings -Discussed importance of good hydration -Continue routine follow up with OBGYN -Continue lovenox as prescribed -Discussed return precautions at length including FKCs Dr. Yoder
== END 2025-04-13 14:20 | disposition home or self-care (01) ==
PROVIDERS: Admitting Provider Obstetrics & Gynecology; Visit Provider Obstetrics & Gynecology
DX: O36.8120 Decreased fetal movements, second trimester, not applicable or unspecified (principal); O26.892 Other specified pregnancy related conditions, second trimester; R25.2 Cramp and spasm; Z3A.26 26 weeks gestation of pregnancy
CPT/HCPCS: 59025; 59899

== ENCOUNTER 2025-05-03 09:55 | Observation (INO) | payer OTHER, SELFPAY ==
[2025-05-03] VITALS (19 sets, daily range): BP systolic 119; BP diastolic 74; PULSE 64–91; RESP 20–98; TEMP 36.8; O2SAT 96–98; BMI 31.4
[2025-05-03 10:40] LABS: Collection Type, Urine Clean Catch
[2025-05-03 11:09] LABS: Bacteria,Urine Rare; Bilirubin,Urine Negative (Negative); Blood,Urine Negative (Negative); Clarity,Urine Clear (Clear/Hazy); Color,Urine Colorless (Lt Yel-Yel); Glucose, Urine Negative (Negative); Ketones,Urine Negative (Negative); Leukocyte Esterase,Urine Negative (Negative); Nitrite,Urine Negative (Negative); PH,Urine 7.0 (5.0-7.0); Protein,Urine Negative (Neg - Trace); RBC,Urine 1 /hpf (0-3); Specific Gravity,Urine 1.003 (1.001-1.035); Squamous Epithelial Cell,Urine < 1 /hpf (0-5); Urobilinogen,Urine Negative mg/dL (0.0-1.0); WBC,Urine 1 /hpf (0-5)
[2025-05-03 11:25] LABS: FFN Specimen Descripton Clr Colrless Aqueous; Fetal Fibronectin Negative (Negative)
== END 2025-05-03 11:38 | disposition home or self-care (01) ==
PROVIDERS: Admitting Provider Specialist; Visit Provider Specialist
DX: O26.893 Other specified pregnancy related conditions, third trimester (principal); Z3A.30 30 weeks gestation of pregnancy; R25.2 Cramp and spasm
CPT/HCPCS: 59025; 59899; 81001; 82731; 87086

== ENCOUNTER 2025-05-04 03:13 | Emergency (ER) | payer OTHER, SELFPAY ==
[2025-05-04 03:14] VITALS: BMI 31.7
[2025-05-04 03:18] VITALS: BP 111/65; PULSE 99; RESP 18; TEMP 36.8; O2SAT 96
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
--- NOTE | 2025-05-04 03:26 | XR_ITS ---
Examination: CT brain head without contrast. 2-D sagittal coronal reconstructions Date and time of exam:May 04, 2025 at 0445 hours INDICATIONS: Patient fell today with injury head, head pain, patient is anticoagulated CTDI: vol (mGy):48.6 DLP: (mGycm):947 Technique: Multiple CT axial sections of the brain have been obtained, 5 mm slice thickness. Contrast has not been administered. 2-D sagittal, coronal reconstructions have been obtained Low dose protocols were performed. One or more of the following dose reduction techniques were used; automated exposure control, adjustment of the mA and/or KV according to patient size, use of iterative reconstruction technique. Findings: No significant ventricular enlargement. Intra-axial or extra-axial hemorrhage density is not seen. No mass effect or midline shift Basal cisterns are not remarkable. Fourth ventricle is midline. Cranial vault intact. Impression: Negative for acute hemorrhage, mass effect or midline shift
--- NOTE | 2025-05-04 03:26 | XR_ITS ---
Examination: CT maxillofacial, without intravenous contrast. 2-D sagittal reconstructions. 3-D reconstructions. Date and time of exam:May 04, 2025, 0445 hours INDICATIONS: Patient fell today with interstitial face, facial pain CTDI: vol (mGy):21.9. DLP: (mGycm):401. Technique: Multiple axial images of maxillofacial region, 3.0 mm slice thickness. 2-D sagittal and coronal reconstructions. 3-D reconstructions. Low dose protocols were performed. One or more of the following dose reduction techniques were used; automated exposure control, adjustment of the mA and/or KV according to patient size, use of iterative reconstruction technique. Findings: Frontal bone is intact Small fracture, right anterior inferior orbital rim, coronal image 45, not seen on April 06, 2024 No definite entrapment of the rectus muscle Bilateral old-appearing nasal bone fractures, similar angulation compared to April 06, 2024 Maxilla and mandible are intact IMPRESSION: Small blowout fracture anterior inferior right orbital rim Bilateral nasal bone fractures which appear old
--- NOTE | 2025-05-04 05:03 | PRELIM_ITS ---
CT scan of the cervical spine without intravenous contrast (axial sections with sagittal and coronal reformats) May 04, 2025 0445 hours Clinical History: Fall; on thinners Comparison: None. Findings: There is no fracture or subluxation. The prevertebral soft tissues are unremarkable. Loss of physiologic cervical lordosis. Hypodense nodule in the left thyroid lobe measures 1.4 cm. Impression: No evidence of fracture or subluxation. Hypodense thyroid nodule, correlation with thyroid function tests and ultrasound is recommended. Report Electronically Signed By: Rikki Adam 05/04/2025 5:03:19 AM [EST]
--- NOTE | 2025-05-04 05:04 | PRELIM_ITS ---
CT scan of the head without intravenous contrast (axial sections with sagittal and coronal reformats) May 04, 2025 at 0445 hours Clinical History: Fall; on thinners. Comparison: No prior study is available for comparison. Findings: No evidence of intracranial hemorrhage, mass effect or midline shift. The ventricles and CSF spaces are unremarkable. The calvarium is intact.The mastoid air cells and the visualized paranasal sinuses are clear. Impression: No evidence of intracranial hemorrhage, midline shift or calvarial fracture. Report Electronically Signed By: Rikki Adam 05/04/2025 5:04:07 AM [EST]
--- NOTE | 2025-05-04 05:06 | PRELIM_ITS ---
CT maxillofacial without intravenous contrast (axial sections with sagittal and coronal reformats). May 04, 2025 at 0445 hours Clinical History: Fall; on thinners. Comparison: No prior study is available for comparison. Findings: Acute comminuted displaced bilateral nasal bone fractures.The maxillary sinus and orbital gunderson are intact. No fluid levels are seen. No evidence of intraorbital hematoma, proptosis, globe injury or radiodense foreign body. The zygomatic arches and mandible are intact. Left facial subcutaneous hematoma. Mucous inclusion cyst in the left maxillary sinus. Impression: Acute comminuted displaced bilateral nasal bone fractures. Report Electronically Signed By: Rikki Adam 05/04/2025 5:05:44 AM [EST]
[2025-05-04 05:14] VITALS: RESP 18
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
--- NOTE | 2025-05-04 23:48 | PD.EDADDENDU ---
Emergency Room Addendum Addendum Narrative: [facility] report states acute nasal fx, but Dr. Arredondo's read states more likely chronic, which confirms patient's history. However, Dr. Arredondo's report also read patient has a small orbital blowout fx, which [facility]'s report did not mention. 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 EOM was intact based on initial exam, as documented in initial encounter,
== END 2025-05-04 05:15 | disposition home or self-care (01) ==
PROVIDERS: Emergency Provider Emergency Medicine
DX: O9A.213 Injury, poisoning and certain other consequences of external causes complicating pregnancy, third trimester (principal); S00.83XA Contusion of other part of head, initial encounter; S02.2XXA Fracture of nasal bones, initial encounter for closed fracture; W18.2XXA Fall in (into) shower or empty bathtub, initial encounter; Y93.E1 Activity, personal bathing and showering; Z3A.30 30 weeks gestation of pregnancy; O99.283 Endocrine, nutritional and metabolic diseases complicating pregnancy, third trimester; E04.1 Nontoxic single thyroid nodule
CPT/HCPCS: 70450; 70486; 72125

== ENCOUNTER 2025-06-25 16:10 | Observation (INO) | payer OTHER, SELFPAY ==
[2025-06-25] VITALS (18 sets, daily range): BP systolic 120; BP diastolic 64–67; PULSE 75–114; RESP 17–98; TEMP 36.8; O2SAT 93–98; BMI 33.0
== END 2025-06-25 17:50 | disposition home or self-care (01) ==
PROVIDERS: Admitting Provider Obstetrics & Gynecology; Visit Provider Obstetrics & Gynecology
DX: O26.893 Other specified pregnancy related conditions, third trimester (principal); Z3A.37 37 weeks gestation of pregnancy; R25.2 Cramp and spasm
CPT/HCPCS: 59025; 59899